=== PATIENT | female | born 1970 | race Caucasian/White ===

== ENCOUNTER → 2017-11-17 11:37 | Outpatient (CLI) | payer SELFPAY ==
--- NOTE | 2017-11-17 11:00 | EMB_PTH ---
PATIENT: USMAN MONTEJO LOC: [facility] U#:[id number] AGE/SX: 54/F ROOM: RE11/17/[address]: Dr. Jacqueline Richardson MD : 1970 BED: DIS: SPEC #: [id number] RECD: 11/17/17 15:09 STATUS: ANTWAN JAMILA #: [id number] MANISHA: 11/17/17 11:[address]: Jacqueline Eaton DEPT: SURGICAL PATHOLOGY RECD BY: Dionisio Nagy Tissues: Endometrium, NOS Procedures: Surgery Specimen Level IV HEADER OPERATION: Endometrial biopsy PRE-OP DIAGNOSIS: N92.0, D25.1; LMP 11/04/17 TISSUE SUBMITTED: Endometrial biopsy MICROSCOPIC DIAGNOSIS Endometrial biopsy: Mildly disordered proliferative endometrium. SJ:gamal 11/21/17 MICROSCOPIC DESCRIPTION Slides are reviewed. GROSS DESCRIPTION Received in fixative is one container labeled with the patient's name and designated EM biopsy. The specimen consists of multiple fragments of hemorrhagic soft tissue mixed with blood clot that in aggregate measure 3 x 2.5 x 0.3 cm. The specimen is totally submitted in one cassette. / SJ:gamal 11/20/17 TC:5 CPT: 08149
[2017-11-17 15:27] LABS: LDH 175 U/L (84-246); Thyroid Stim Hormone (TSH) 1.88 uIU/mL (0.358-3.74)
== END ==
PROVIDERS: Visit Provider Obstetrics & Gynecology
DX: N92.0 Excessive and frequent menstruation with regular cycle (principal); D25.1 Intramural leiomyoma of uterus
CPT/HCPCS: 36415; 83615; 84443; 88305

== ENCOUNTER → 2023-10-02 | Outpatient (CLI) | payer SELFPAY ==
[2023-10-02 17:03] LABS: Absolute Lymphocyte Count 2.24 X10^3/uL (0.83-4.51); Absolute Neutrophil Count 5.1 X10^3/uL (2.0-7.7); Basophil# 0.06 X10^3/uL; Basophil% 0.7 % (0-1); Eosinophil# 0.11 X10^3/uL; Eosinophils% 1.4 % (0-5); Hematocrit 38.5 % (37-47); Hemoglobin 12.3 g/dL (12.0-15.0); Lymphocyte # 2.24 X10^3/ul (0.83-4.51); Lymphocyte % 27.9 % (19-41); Mean Corp Hgb Conc 31.9 g/dL (32-36); Mean Corpuscular Hgb 29.6 pg (27.0-32.0); Mean Corpuscular Volume 92.8 fL (81-99); Mean Platelet Vol. 10.1 fl (6.2-12.0); Monocyte# 0.49 X10^3/uL; Monocyte% 6.1 % (0-10); NRBC Flagged by Analyzer 0 % (0-5); Neutrophil # 5.05 X10^3/uL (2.7-7.7); Platelet Count 255 K/mm3 (150-450); RBC Distribution Width CV 12.4 % (11.6-14.6); RBC Distribution Width SD 42.2 fl (35.1-43.9); Red Blood Count 4.15 M/mm3 (4.2-5.4)
== END | disposition home or self-care (01) ==
PROVIDERS: Referring Provider Obstetrics & Gynecology; Visit Provider Obstetrics & Gynecology
DX: D25.9 Leiomyoma of uterus, unspecified (principal); N80.9 Endometriosis, unspecified
CPT/HCPCS: 36415; 85025

== ENCOUNTER → 2023-10-16 | Outpatient (CLI) | payer SELFPAY ==
--- NOTE | 2023-10-16 13:37 | US_ITS ---
STUDY: ULTRASOUND OF THE FEMALE PELVIS - COMPLETE REASON FOR EXAM: Female, 53 years old. AUB LMP: Patient is postmenopausal. TECHNIQUE: Transabdominal and Transvaginal TECHNICAL QUALITY: Adequate. COMPARISON: None. FINDINGS: The uterus is anteverted and is in a midline position. The uterus measures 11.7 cm x 10.1 cm x 7.1 cm. There is a Nabothian cyst of the cervix. The endometrium is thickened and measures 15 mm in thickness, and is hyperechoic. There is no demonstrated endometrial mass. Multiple uterine fibroids are seen. The largest is a pedunculated fibroid measuring 7.3 cm x 6.1 cm by 4.4 cm. I.U.D. - The patient does not have an I.U.D. The right ovary is visualized. The right ovary measures 2.6 cm x 1.6 cm x 1.4 cm. There is no right ovarian cyst or ovarian mass. There is no visualized right adnexal mass or complex lesion. There is normal arterial and normal venous vascularity. The left ovary is visualized. The left ovary measures 4.2 cm x 2.1 cm x 1.3 cm. There is no left ovarian cyst or ovarian mass. There is no visualized left adnexal mass or complex lesion. There is normal arterial and normal venous vascularity. There is no fluid in the cul-de-sac. The pre void volume of the bladder was 206 ml. US/Pelvic w/ Transvaginal IMPRESSION: Multiple uterine fibroids. Thickened endometrium. Electronically Signed: Terrell Weldon MD at 9:34 EDT ,
== END | disposition home or self-care (01) ==
PROVIDERS: Referring Provider Obstetrics & Gynecology; Visit Provider Obstetrics & Gynecology
DX: D25.9 Leiomyoma of uterus, unspecified (principal); Z78.0 Asymptomatic menopausal state; N80.9 Endometriosis, unspecified; N93.9 Abnormal uterine and vaginal bleeding, unspecified
CPT/HCPCS: 76830; 76856

== ENCOUNTER → 2023-11-08 | Outpatient (CLI) | payer SELFPAY ==
--- NOTE | 2023-11-08 | EMB_PTH ---
PATIENT: USMAN MONTEJO LOC: [facility] U#:[id number] AGE/SX: 53/F ROOM: RE11/08/[address]: Dr. Sera Bowser MD : 1970 BED: DIS: 11/08/2023 SPEC #: [id number] RECD: 11/08/23 17:50 STATUS: ANTWAN JAMILA #: [id number] MANISHA: 11/08/23 00:[address]: Sera Bowser DEPT: SURGICAL PATHOLOGY RECD BY: Dionisio Nagy ENTERED: 11/09/23 07:24 SP TYPE: ENDOM BX/C DALILA DR: No Primary Care Phys Tissues: Endometrium, NOS Procedures: Surgery Specimen Level IV HEADER OPERATION: Endometrial biopsy PRE-OP DIAGNOSIS: Abnormal uterine bleeding TISSUE SUBMITTED: Endometrial lining MICROSCOPIC DIAGNOSIS Endometrial biopsy: Proliferative endometrium. ALLI/ 11/10/2023 MICROSCOPIC DESCRIPTION Slides are reviewed. GROSS DESCRIPTION Received is one container labeled with the patient's name and not further designated. The specimen consists of multiple irregular fragments of hemorrhagic mucoid tissue that in aggregate measure 2.5 x 2.5 x 0.3 cm. The specimen is totally submitted in one cassette. ALLI/ 11/09/2023 TC:4 CPT:90060
[2023-11-12 19:07] LABS: HPV APTIMA, High Risk Negative (Negative)
== END | disposition home or self-care (01) ==
PROVIDERS: Referring Provider Obstetrics & Gynecology; Visit Provider Obstetrics & Gynecology
DX: N93.9 Abnormal uterine and vaginal bleeding, unspecified (principal)
CPT/HCPCS: 87624; 88175; 88305; G0145

== ENCOUNTER 2023-12-26 05:32 | Day surgery (SDC) | payer SELFPAY ==
--- NOTE | 2023-12-18 08:48 | EKG12_ITS ---
Test Reason : PRE OP Blood Pressure : / mmHG Vent. Rate : 066 BPM Atrial Rate : 066 BPM P-R Int : 142 ms QRS Dur : 088 ms QT Int : 388 ms P-R-T Axes : 068 028 -02 degrees QTc Int : 406 ms Normal sinus rhythm Low voltage QRS Nonspecific T wave abnormality Abnormal ECG Confirmed by JAMARI SHAW, JOEL ([id number]), film editor supervisor MARISA RAJAN ([id number]) on 12/22/2023 6:10:44 AM Referred By: Melody Adan Confirmed By:TOM KAUFFMAN MD
[2023-12-18 09:50] LABS: Magnesium 2.1 mg/dL (1.6-2.6)
[2023-12-26] VITALS (18 sets, daily range): BP systolic 99–149; BP diastolic 67–90; PULSE 51–67; RESP 14–20; TEMP 36.4–36.8; O2SAT 94–100; BMI 32.9
[2023-12-26 06:17] LABS: Internal QC Validated? YES +Cl - CLEAR BKGD; Pregnancy, Urine Negative Negative
[2023-12-26] MEDS: Acetaminophen 500 MG Tablet 1000 MG PO ×2 (06:29→15:04)
[2023-12-26] MEDS: Magnesium 1 GM over 15 mins IV (06:29)
[2023-12-26] MEDS: Celecoxib 200 MG Capsule 400 MG PO (06:29)
[2023-12-26] MEDS: dexAMETHasone 4 MG/ML Vial 8 MG IV (06:29)
[2023-12-26] MEDS: Gabapentin 600 MG Tablet PO (06:29)
[2023-12-26] MEDS: Phenazopyridine 95 MG Tablet 190 MG PO (06:29)
[2023-12-26] MEDS: Scopolamine 1mg/72hr Patch 1 PATCH TD (06:30)
[2023-12-26] MEDS: Lactated Ringers 1,000 ML 40 ML IV (06:30)
[2023-12-26] MEDS: Enoxaparin 30 MG/0.3 ML Syringe SC (06:53)
--- NOTE | 2023-12-26 07:00 | PRE.ANES_ITS ---
ASA Classification* ASA Classification ASA Classification: 2 Assessment & Plan Anesthesia* Anesthesia Assessment Anesthesia Assessment: Discussed sedation and/or anesthesia options, risks, benefits, and alternatives with patient/parents/legal guardian/POA. Questions invited. The patient/parents/legal guardian/POA seems to understand and agrees to proceed with anesthesia plan. Reviewed the physical assessment, medical history, allergy history and patient home medications list prior to surgery/procedure/anesthetic and documented any changes. Performed airway and anesthesia risk assessments. Anesthesia Type Anesthesia Type: General Anesthesia Focused Assessment* Temperature: 97.6 F Pulse Rate: 67 Blood Pressure: 132/90 Respiratory Rate: 17 Pulse Ox: 100 Airway Assessment Mouth opens: >3 cm Mallampati Score: II Focused Labs Anesthesia Preop lab: CBC WBC 8.0 K/mm3 (4.4-11.0) 10/02/23 16:47 RBC 4.15 M/mm3 (4.2-5.4) L 10/02/23 16:47 Hgb 12.3 g/dL (12.0-15.0) 10/02/23 16:47 Hct 38.5 % (37-47) 10/02/23 16:47 Plt Count 255 K/mm3 (150-450) 10/02/23 16:47 CHEMISTRY Potassium Pending 12/26/23 06:20 Sodium Pending 12/26/23 06:20 Magnesium 2.1 mg/dL (1.6-2.6) 12/18/23 08:50 BUN Pending 12/26/23 06:20 Creatinine Pending 12/26/23 06:20 Glucose Pending 12/26/23 06:20 TSH 1.88 uIU/mL (0.358-3.74) 11/17/17 11:41 COAG Urine Test Negative Negative 12/26/23 06:05 Pre-Assessment Diagnosis/Proposed Procedure Planned Operative Procedure(s): Lap Robotic Hysterectomy Cory Salping Anesthesia History Anesthesia History - customer assistance representative: Anesthesia History - customer assistance representative Hx Hospitalization No 12/13/23 09:08 Any Problems With Anesthesia No 12/13/23 09:08 Cholinesterase deficiency No 12/13/23 09:08 You/Your Family Experience No 12/13/23 09:08 fever (hyperthermia) with Relationship Recent Exposure to Contagious No 12/26/23 06:36 Disease Does patient have nerve No 12/13/23 09:08 stimulator Patient instructed to have device shut off --Does patient have Pacemaker No 12/26/23 06:36 or ICD? When Was Last Pacemaker Check QUESTION #4 FULL TEXT: You/Your Family Experience fever (hyperthermia) with Anesthesia Last Oral Intake Last Oral intake: Last Oral Intake NPO since 06:40 12/26/23 06:36 Meds taken in AM with sips of No 12/26/23 06:36 water? Meds patient instructed to take am of surgery PONV PONV - customer assistance representative: PONV - customer assistance representative Female Yes 12/13/23 09:08 HX of Motion Sickness Yes 12/13/23 09:08 HX of N/V After Surgery Yes 12/13/23 09:08 Non-Smoker Yes 12/13/23 09:08 Duration of Surgery greater Yes 12/13/23 09:08 than 60 minutes Number of Risk Factors 5 12/13/23 09:08 PONV Score Severe Risk 12/13/23 09:08 Height & Weight Height & Weight: Anesthesia: Height & Weight Height 5 ft 4 in 12/26/23 06:36 Weight: 87 kg 12/26/23 06:36 Body Mass Index (BMI) 32.9 12/26/23 06:36 Respiratory Assessment Respiratory Assessment - customer assistance representative: Respiratory Tract Infection Hx - customer assistance representative Hx Respiratory Tract Infection No 12/13/23 09:08 STOP Sleep Apnea STOP Sleep Apnea - customer assistance representative: STOP Sleep Apnea - customer assistance representative Hx Hypertension No 12/13/23 09:08 Hx Sleep Apnea No 12/13/23 09:08 CPAP BIPAP Do you snore loudly (louder No 12/13/23 09:08 than talking or can be heard Do you often feel tired/ No 12/13/23 09:08 fatigued/ sleepy during daytime? Has anyone observed you stop No 12/13/23 09:08 breathing during sleep? STOP Results Negative 12/13/23 09:08 QUESTION #5 FULL TEXT : Do you snore loudly (louder than talking or can be heard through closed doors)? Tobacco Use History Tobacco Use History - customer assistance representative: Tobacco Use History - customer assistance representative Tobacco Use Smoking Status Never smoker 12/13/23 09:08 Hx Tobacco Use No 12/13/23 09:08 Years Smoking Packs Smoked per Day Smoking Cessation Date was within the last 15 years Hx Smoking Cessation Date Hx Smoking Cessation Counseling Hematologic Medial History Hematologic Hx - customer assistance representative: Hematologic Medical Hx - executive candidate developer Hx of Blood Transfusion No 12/13/23 09:08 Hx of Transfusion in last 3 No 12/13/23 09:08 Months Date of Last Transfusion (if within last 3 months) Ever experience any problems No 12/13/23 09:08 with transfusion(s)? Specify any problems Hx of Preganancy in last 3 N/A 12/13/23 09:08 Months Nurse Filling Out Transfusion NBUCHER 12/13/23 09:08 & Questions: Date: 12/13/23 12/13/23 09:08 Time: 09:10 12/13/23 09:08 Patient unable to answer at this time (ie. confused, unrespo /Reproduction History /Reproductive History - customer assistance representative: /Reproductive Hx- customer assistance representative Hx Now No 12/13/23 09:08 Gestational Age (in weeks): EDC: Hx Hx Para Hx Section SAB No 12/20/23 13:05 Active Medications Active Medications: Current Medications Generic Name Dose Route Start Last Admin Trade Name Freq PRN Reason Stop Dose Admin Acetaminophen 1,000 mg 12/26/23 11:05 12/26/23 06:29 Acetaminophen 500 Mg Tablet PO 12/26/23 11:06 1,000 mg PREOP ONE Administration Celecoxib 400 mg 12/26/23 11:05 12/26/23 06:29 Celecoxib 200 Mg Capsule PO 12/26/23 11:06 400 mg X1 ONE Administration Dexamethasone Sodium Phosphate 8 mg 12/26/23 11:05 12/26/23 06:29 Dexamethasone 4 Mg/Ml Vial IV 12/26/23 11:06 8 mg X1 ONE Administration Gabapentin 600 mg 12/26/23 11:05 12/26/23 06:29 Gabapentin 600 Mg Tablet PO 12/26/23 11:06 600 mg PREOP ONE Administration Lactated Ringer's 1,000 mls @ 40 mls/hr 12/26/23 11:05 12/26/23 06:30 IV 40 mls/hr .Q25H NATIVIDAD Administration Cefazolin Sodium 2 gm/ Sodium 110 mls @ 150 mls/hr 12/26/23 11:05 Chloride IV 12/26/23 11:48 PREOP ONE Lactated Ringer's 1,000 mls @ 70 mls/hr 12/26/23 11:05 IV .[id number] NATIVIDAD Magnesium Sulfate 1 gm/ 102 mls @ 408 mls/hr 12/26/23 11:05 12/26/23 06:29 Dextrose IV 12/26/23 11:19 408 mls/hr X1 ONE Administration Insulin Human Lispro 0 unit 12/26/23 11:05 Insulin Lispro 100 Unit/Ml Insuln.Pen SC Q4H PRN PRN BG >/= 180, SEE PROTOCOL Protocol Ondansetron HCl 4 mg 12/26/23 11:05 Ondansetron 4 Mg/2 Ml Vial IV 12/26/23 11:06 X1 ONE Phenazopyridine HCl 190 mg 12/26/23 11:05 12/26/23 06:29 Phenazopyridine 95 Mg Tablet PO 12/26/23 11:06 190 mg X1 ONE Administration Scopolamine HBr 1 patch 12/26/23 11:05 12/26/23 06:30 Scopolamine 1mg/72hr Patch TD 12/26/23 11:06 1 patch X1 ONE Administration PFSH Medical History Preop testing PONV (postoperative nausea and vomiting) Wears glasses Restless legs Migraine headache Non-smoker History of edema Uterine fibroid Endometriosis Home Medications ?Medication ?Instructions ?Recorded ?Last Taken ?Type vitamin B complex (Complex B-100 1 tab PO DAILY 12/13/23 12/25/23 History tablet,extended release) Allergy/AdvReac Type Severity Reaction Status Date / Time No Known Allergies Allergy Verified 12/26/23 06:28 Family History Father Colon cancer Grandmother Uterine cancer, Onset Age: 78 Other Heart disease Surgical History History of wisdom tooth extraction H/O laparoscopy Social History adopted: No number of children: 1 current occupational status: employed current occupation: House cleaning Smoking Status: Never smoker alcohol intake: never substance use type: does not use additional social history: Spouse - Maria T (drafting in a [employer] shop) Review of Systems (Anesthesia) ROS Narrative System reviewed and no additional complaints, except as documented.
[2023-12-26 07:12] LABS: Bedside Glucose 81 mg/dL (74-106)
--- NOTE | 2023-12-26 07:16 | HP.PCM_ITS ---
History and Physical Date of Admission: 12/26/23 Intake Vital Signs 11/08/2415:11 12/19/2412:03 12/19/2412:05 Height 5 ft 4 in 5 ft 4 in 5 ft 4 in Weight: 194 lb BMI 33.3 BP 114/76 Intake Visit Reasons: robotic total hyst BS Marriage Counselor Required: No Is patient in pain?: No Allergies No Known Allergies Allergy (Verified 12/20/23 13:03) Medications ?Medication ?Instructions ?Recorded ?Confirmed ?Type vitamin B complex (Complex B-100 1 tab PO DAILY 12/13/23 12/20/23 History tablet,extended release) Post menopausal: No Patient : No : No PFSH Medical History Preop testing PONV (postoperative nausea and vomiting) Wears glasses Restless legs Migraine headache Non-smoker History of edema Uterine fibroid Endometriosis Surgical History History of wisdom tooth extraction H/O laparoscopy Family History Father Colon cancerGrandmother Uterine cancer, Onset Age: 78Other Heart disease Social History adopted: No number of children: 1 current occupational status: employed current occupation: House cleaning Smoking Status: Never smoker alcohol intake: never substance use type: does not use additional social history: Spouse - Maria T (drafting in a [employer] shop) HPI robotic total hyst BS Details: USMAN MONTEJO is a 53 year old (vaginal) who presents for preop hysterectomy. She is scheduled for a robotic hysterectomy. She has a history of heavy periods and now has low back pain and sever pressure and pain in her abdominal area. pain radiates to her knees at time. EMB was benign. Ultrasound shows the following: The uterus is anteverted and is in a midline position. The uterus measures 11.7 cm x 10.1 cm x 7.1 cm. There is a Nabothian cyst of the cervix. The endometrium is thickened and measures 15 mm in thickness, and is hyperechoic. There is no demonstrated endometrial mass. Multiple uterine fibroids are seen. The largest is a pedunculated fibroid measuring 7.3 cm x 6.1 cm by 4.4 cm. I.U.D. - The patient does not have an I.U.D. The right ovary is visualized. The right ovary measures 2.6 cm x 1.6 cm x 1.4 cm. There is no right ovarian cyst or ovarian mass. There is no visualized right adnexal mass or complex lesion. There is normal arterial and normal venous vascularity. The left ovary is visualized. The left ovary measures 4.2 cm x 2.1 cm x 1.3 cm. There is no left ovarian cyst or ovarian mass. There is no visualized left adnexal mass or complex lesion. There is normal arterial and normal venous vascularity. There is no fluid in the cul-de-sac. The pre void volume of the bladder was 206 ml. US/Pelvic w/ Transvaginal IMPRESSION: Multiple uterine fibroids. Thickened endometrium. endometrial pathology showed proliferative endometrium on EMB. History 1 Elective abortions Hx Para 1 Spontaneous abortions Hx # Term Pregnancies Ectopic pregnancies Hx # Pregnancies Multiple births # of living children 1 Past Pregnancies Del. Date Name GA/Weeks Outcome Route Bth Weight Infant Gen Labor Lgth Anesthesia Del Locatn Provider FOB Unknown Evette 1994 ROS Const ROS Unobtainable: All systems reviewed & are unremarkable except as noted in H Resp Resp: Reports system reviewed and no additional complaints, except as documented; Denies cough GI GI: Reports as per HPI Psych Psych: Reports system reviewed and no additional complaints, except as documented Exam Const General: cooperative, healthy appearing, comfortable and no acute distress Resp Effort & Inspection: normal respiratory effort Skin General: no rashes or lesions noted Psych Appearance: grossly normal Speech and Movement: speech and movement normal Coding Level of Care Code Off vis,est,level 4 Diagnoses Uterine fibroid D25.9 Endometriosis N80.9 Assessment and Plan Assessment and Plan (1) Uterine fibroid: Status: Acute Comment: discussed options, workup ordered. needs cbc US EMB and discussed Myfembree vs Hysterectomy. 7 cm fibroid, pap and EMB done, recommend robotic TLHBS. (2) Endometriosis: Status: Acute Plan: After discussing the patient's diagnosis and treatment plan options, patient wishes to proceed with surgical management. I have discussed with the patient the risks, benefits, and alternatives of the procedure which include but are not limited to risks of anesthesia, bleeding, infection, possible damage to bowel, bladder, or surrounding vasculature which could lead to additional surgery to evaluate any complications. Patient agrees to procedure and wishes to proceed. ACOG/uptodate references given for additional information regarding procedure. plan is for total robotic hysterectomy, bilateral salpingectomy, cystoscopy.
--- NOTE | 2023-12-26 07:22 | DCINST_ITS ---
Discharge Instructions Diet Discharge Diet: No restrictions Activity Discharge Activity: May Shower and - (may walk and use stairs sparingly. Nothing in the vagina, and no intercourse x 8 weeks. ) May resume sexual activity in: 6 weeks Weight Bearing Status: Full weight bearing Lifting Restrictions: 10 pounds Dressing / Incision Call your doctor if your incision/area has: Continuous Slow Oozing, Sudden Increased Bleeding, Increased Pain/ Swelling, Increased Redness and Foul Smelling Discharge Call your doctor if you observe: Fever of 101 or Higher, Using more than 1 pad per hour, Shortness of breath, Chest pain and Uncontrolled pain Suture Line Care: Avoid Pulling/Pushing and Avoid Pinching/Bending Remove Dressing in: 1 week (if present) Cleanse incision/area with: Soap & Water and Keep Dressing Clean & Dry Follow Up Care Please Follow Up With: Melody Adan DO When: Call to make an appointment with your doctor for a postop visit in 2 and 6 weeks Test Results: Test results from this visit will be discussed in further detail at your follow- up appointment, if applicable. Discharge Plan Admission Primary Reason for Your Visit: hysterectomy Attending Provider: Melody Adan Primary Care Provider: Dorys PhysicianIris Primary Instructions Print Language: [place] Discharge Orders/Prescriptions Prescriptions: New ibuprofen 800 mg tablet 800 mg PO Q8H PRN (Reason: pain) Qty: 30 0RF oxycodone-acetaminophen [Percocet] 5-325 mg tablet 1 tab PO Q4H PRN (Reason: pain) 7 Days Qty: 20 0RF Rx Instructions: 1-2 tabs q 4 hrs as needed for pain No Action Complex B-100 Tablet Extended Release 1 tab PO DAILY Other Ambulatory Orders: 12 Lead EKG (Routine) Timeframe: 20231218 Location: None Selected Ordered By: Dr. Delfino Mayorga Referrals / Follow Up: Care Physician,No Primary [Primary Care Provider] - Disposition Disposition (needs filled in before D/C Order can be placed): Home, Self Care
--- NOTE | 2023-12-26 07:30 | HYST_PTH ---
PATIENT: USMAN MONTEJO [place] [facility] [place][id number] AGE/SX: 53/F ROOM: RE12/26/[address]: Dr. Melody Adan DO : 1970 BED: DIS: 12/26/2023 SPEC #: [id number] RECD: 12/26/23 11:14 STATUS: ANTWAN JAMILA #: [id number] MANISHA: 12/26/23 07:[address]: Melody Adan DEPT: SURGICAL PATHOLOGY RECD BY: Ines Woods ENTERED: 12/26/23 12:51 SP TYPE: HYSTERECT OTHR DR: No Primary Care Phys Tissues: Uterus, NOS Procedures: Surgery Specimen Level V HEADER OPERATION: Laparoscopic robotic hysterectomy, bilateral salpingectomy PRE-OP DIAGNOSIS: Uterine fibroid, endometriosis TISSUE SUBMITTED: Uterus and bilateral fallopian tubes MICROSCOPIC DIAGNOSIS Uterus, bilateral fallopian tubes, hysterectomy, bilateral salpingectomy: Cervix - Chronic inflammation Endometrium - Proliferative endometrium Myometrium - Intramural, submucosal and subserosal leiomyomas (largest measuring 7.0cm in greatest dimension). -Focal adenomyosis. Bilateral fallopian tubes- No pathologic diagnosis. 12/27/2023 COMMENT Please make reference to previous specimen [id number] endometrial biopsy with diagnosis of proliferative endometrium. MICROSCOPIC DESCRIPTION Slides are reviewed. GROSS DESCRIPTION Received in fixative is one container labeled with the patient's name and designated uterus, cervix, bilateral fallopian tubes. The specimen consists of a hysterectomy specimen consisting of uterus with cervix and attached right fallopian tube and detached left fallopian tube. The uterus with cervix weighs 347 gm and measures 11.0 x 11.0 x 11.0 cm. The serosal surface is huynh glistening. A few subserosal nodules are noted. The ectocervical mucosa is unremarkable. The external os is oval in contour. The endocervical canal measures 3.5 cm in length and the endocervical mucosa is huynh glistening and unremarkable. The endometrial cavity is narrow and compressed due to submucosal nodular masses and measures 5.5 cm in length and 2.0 cm in width. The endometrium is huynh glistening without any mass lesions and measures 0.1 cm in thickness. Section of the uterine wall reveal multiple intramural submucosal and subserosal nodular masses. Largest mass is subserosal to intramural location and measures 7.0cm in greatest dimension. Sections of these masses reveal huynh whorled cut surfaces without areas of hemorrhage, necrosis or cystic degeneration. Uninvolved uterine wall measures up to 3.5cm in thickness. Right fallopian tube measures 7.5cm in length and 0.7cm in diameter. Fimbrial end is identified. Sections reveal unremarkable cut surfaces. Left fallopian tube is similar in appearance to right and measures 5.5cm in length and up to 1.0cm in diameter. Radio Commentator sections are submitted in twelve cassettes as follows: 1 - anterior cervix, 2 - posterior cervix, 3 & 4 - anterior uterine wall, 5 & 6 - posterior uterine wall, 7- largest nodular mass, 8- second largest nodular mass, 9- third largest nodular mass, 10- smaller nodular masses, 11- right fallopian tube, 12- left fallopian tube. SJ: 12/26/2023 TC:1 CPT: 60105
--- NOTE | 2023-12-26 09:15 | OP.PCM_ITS ---
Problems Associated Problem List Diagnoses (1) Uterine fibroid: (2) Endometriosis: Report of Operation Date of Procedure: 12/26/23 Pre-Operative Diagnosis: large fibroid uterus, history of endometriosis, pelvic pain and menorrhagia Post-Operative Diagnosis: large fibroid uterus, history of endometriosis, pelvic pain and menorrhagia Surgery/Procedure Performed:: total robotic hysterectomy, bilateral salpingectomy, cystoscopy Description of Surgical Findings:: Findings: 11 cm size posterior fibroid uterus, normal appearing right ovary and tube. Left ovary contained a 2 cm endometrioma and a normal fallopian tube On exploration of the abdominal cavity the uterus, adnexa, bowel, and liver were found to be normal. Cystoscopy showed no evidence of leaking at approximately 250 cc of normal saline, positive ureteral orifices and jet flow are seen and no suture material was appreciated in the bladder. Specimens removed: Uterus and cervix, Bilateral tubes Reason for surgery: This is a 52-year-old G1, P1 who presented to my office with history of pelvic and back pain, heavy periods, and ultrasound finding or a left ovarian endometrima and large 11cm fibroid uterus. the planned procedure is for a robotic hysterectomy the risks benefits and alternatives were discussed with the patient the patient had a clear understanding of the procedure and a consent form was signed. Surgeon: Melody Adan outdoor adventure guides: Paulette Arreola outdoor adventure guides: aRmos Nunez Type of Anesthesia: General Specimen's removed: uterus, fallopian tubes Drains: none Estimated Blood Loss (mL): 50cc Description of Procedure: Procedure: The patient was placed in the dorsal low lithotomy position and prepped and draped in the normal sterile fashion both abdominally and in the perineum. Her legs were placed in stirrups a Og catheter was inserted into the urethra without difficulty. A weighted speculum was placed in the vagina and a single- tooth tenaculum was used to grasp the anterior lip of the cervix. An advincula uterine manipulator was inserted through the cervix without complication. It was then tied into place at the 2 and 10:00 locations on the cervix. Gloves were changed and attention was turned towards the abdomen. Approximately 23 cm above the pubic symphysis in the midline, and after Marcaine injection, a 8 mm incision was made. An 8 mm trocar was inserted through the laparoscope, then inserted into the abdomen under direct visualization using the laparoscope. Good abdominal placement was noted and no complications were appreciated. An air seal device was utilized to create pneumoperitoneum. At 12 cm lateral to the midline on the left and right sides 8 mm accessory ports were placed. Next a left upper quadrant 8 mm assistant analyst port site was placed. The patient was placed in steep Trendelenburg position. The robot was docked. The hysterectomy was initiated first by taking down the round ligament on each side using the vessel sealer device. The mesosalpinx between the fallopian tube and IP ligament was and cut. These areas were freed without complication the broad ligament was then and taken down using the vessel sealer device. Next the bladder flap was taken down without complication. This was done using monopolar cautery to the level of the cervical vaginal junction. After the bladder flap was created, uterine vessels were then isolated and cauterized using the vessel sealer device and EndoShears. At this point the uterine vessels were taken down further starting from the ascending branch, dissecting along the edges of the cervix to the level of the cervical vaginal junction with hemostasis appreciated. The cervical vaginal junction was then using monopolar cautery in a circumferential pattern across the superior aspect of the cervix. The specimen was delivered through the vagina with minimal morselation and sent to pathology. The remaining vaginal cuff was then closed using a V lock suture. This was performed in a running technique. Excellent hemostasis was obtained and good closure was noted. Irrigation was then performed. All operative sites were noted to be hemostatic. The left ovarian endometrioma was incised and drained then cauterized using the bovie. A cystoscopy was performed with a 70 degree cystoscope through the urethra into the bladder without complication. The bladder was instilled with approximately 250 cc of normal saline. Intraoperative images were made. Ureteral orifices and jets were identified. No suture material was appreciated in the bladder. The bladder was then drained and cystoscope was removed. A small vaginal wall tear was repaired with a 0 vicryl suture. The abdominal cavity was again examined using the laparoscope after the robot was undocked. All operative sites were noted to be hemostatic. The trochars were removed under direct visualization without complication and pneumoperitoneum was reduced. At this point the skin was then closed using 4-0 Monocryl subcuticular stitch and sealed with surgical glue. The patient tolerated the procedure well sponge lap and needle counts were correct x2 the patient was taken to the recovery room in stable condition. Grafts/Implants Used: none Admit VTE Documentation VTE Present on Admission: Yes VTE Pharm Prophylaxis ordered?: No Multi Select Codes Urinary/Genital Urinary/Genital CPT Codes: 38904 Cystoscopy and 88553 TLH+BS/O >250gr uterus
[2023-12-26] MEDS: Bupivacaine 0.25% 30 ML Vial (09:23)
--- NOTE | 2023-12-26 09:39 | PCM.POST.ANE ---
Anesthesia: Postop Eval I Current Vital Signs Temperature: 98 F Pulse Rate: 66 Blood Pressure: 108/72 Respiratory Rate: 20 Pulse Ox: 98 Oxygen Delivery Method: Room Air Assessment Airway patent: Yes Spontaneous unlabored respirations: Yes Mental status: Awake nausea: No Vomiting: No Anesthesia Complication: No Fluid Hydration Crystalloid volume administer (ml): 1,300 Total IV fluid infused: 1,300 Progress Note Anesthesia document: Postop Eval 1 completed: Yes
[2023-12-26] MEDS: Ondansetron 4 MG/2 ML Vial IV (09:41)
[2023-12-26 09:47] LABS: Anion Gap 5 (5-15); BUN 12 mg/dL (7-18); BUN/Creat Ratio 17.3 RATIO (10-20); Calcium,Total 9.8 mg/dL (8.5-10.1); Chloride 105 mmol/L (98-107); Creatinine, Serum 0.69 mg/dL (0.55-1.02); EST Glomerular Filtration Rate 95 mL/min (>60); Est Glom Filt Rate - Afr Amer 115 mL/min (>60); Estimated Creatinine Clearance 102.97 ml/min; Glucose 86 mg/dL (74-106); Potassium 3.5 mmol/L (3.5-5.1); Sodium Level 141 mmol/L (136-145)
--- NOTE | 2023-12-26 09:54 | POSTOPAN2_ITS ---
Anesthesia Postop Eval I Sum Postop Eval Completion status Anesthesia document: Postop Eval 1 completed: Yes Anesthesia Postop Eval I Summary Anesthesia Postop Eval I Summary: Anesthesia Postop Eval I: Assessment Summary Airway patent Yes 12/26/23 09:40 EYEGLASS LENS [email or web address] Spontaneous unlabored Yes 12/26/23 09:40 EYEGLASS LENS [email or web address] respirations Mental status Awake 12/26/23 09:40 EYEGLASS LENS GRINDER.JDEF nausea No 12/26/23 09:40 EYEGLASS LENS GRINDER.JDEF Vomiting No 12/26/23 09:40 EYEGLASS LENS [email or web address].JDEF Anesthesia Postop Eval I: Fluid Summary Crystalloid volume administer 1,300 12/26/23 09:40 EYEGLASS LENS GRINDER.JDEF (ml) Colloids volume administered ( ml) Blood Product volume administered (ml) Total IV fluid infused 1,300 12/26/23 09:40 EYEGLASS LENS GRINDER.JDEF Anesthesia Postop Eval I: Summary Notes Anesthesia Complication No 12/26/23 09:40 EYEGLASS LENS [email or web address].JDEF Anesthesia Complication Comment: Post-operative progress note Anesthesia: Postop Eval II Evaluation Mental status: Awake Pain Level: 0 nausea: No Vomiting: No
--- NOTE | 2023-12-26 09:54 | PCM.POSTANE2 ---
Anesthesia Postop Eval I Sum Postop Eval Completion status Anesthesia document: Postop Eval 1 completed: Yes Anesthesia Postop Eval I Summary Anesthesia Postop Eval I Summary: Anesthesia Postop Eval I: Assessment Summary Airway patent Yes 12/26/23 09:40 INSPECTOR PROCESS.JDEF Spontaneous unlabored Yes 12/26/23 09:40 INSPECTOR PROCESS.JDEF respirations Mental status Awake 12/26/23 09:40 INSPECTOR PROCESS.JDEF nausea No 12/26/23 09:40 INSPECTOR PROCESS.JDEF Vomiting No 12/26/23 09:40 INSPECTOR PROCESS.JDEF Anesthesia Postop Eval I: Fluid Summary Crystalloid volume administer 1,300 12/26/23 09:40 INSPECTOR PROCESS.JDEF (ml) Colloids volume administered ( ml) Blood Product volume administered (ml) Total IV fluid infused 1,300 12/26/23 09:40 INSPECTOR PROCESS.JDEF Anesthesia Postop Eval I: Summary Notes Anesthesia Complication No 12/26/23 09:40 INSPECTOR PROCESS.JDEF Anesthesia Complication Comment: Post-operative progress note Anesthesia: Postop Eval II Evaluation Mental status: Awake Pain Level: 0 nausea: No Vomiting: No
[2023-12-26] MEDS: Lactated Ringers @ 70 MLS/HR 70 ML IV (12:25)
[2023-12-26] MEDS: HYDROcodone Bitartrate/Apap 5/325 Tablet PO (12:43)
--- NOTE | 2023-12-26 13:32 | SUR.PHASEII ---
scop patch off at 1325, patient complaint of dizziness, drowsiness.
[2023-12-26] MEDS: Ibuprofen 400 MG Tablet 800 MG PO (15:41)
[2023-12-26] MEDS: Furosemide 20 MG/2 ML VIAL IV (17:09)
== END 2023-12-26 18:00 | disposition home or self-care (01) ==
LOC: SDC 05:35 → AC 05:57
PROVIDERS: Referring Provider Obstetrics & Gynecology; Visit Provider Obstetrics & Gynecology
PROC: 0UT90ZZ Resection of Uterus, Open Approach (ICD-10-PCS; CPT 58573; principal; 2023-12-26 07:10)
DX: D25.9 Leiomyoma of uterus, unspecified (principal); N88.8 Other specified noninflammatory disorders of cervix uteri; N80.9 Endometriosis, unspecified; R10.2 Pelvic and perineal pain; N72 Inflammatory disease of cervix uteri
CPT/HCPCS: 58573; 52000; 00840; 80048; 81025; 82962; 83735; 86850; 86900; 86901; 88307; 93005; J7120; J1940; J2405; J3475

== ENCOUNTER 2025-03-22 10:55 | Emergency (ER) | payer SELFPAY ==
[2025-03-22 10:55] VITALS: BP 171/101; PULSE 69; RESP 14; TEMP 36.1; O2SAT 98; BMI 33.2
--- OUTSIDE RECORDS SUMMARY | 2025-03-22 11:50 | XMS RPT_ITS | CCD ---
Author Organization [facility] Care Team Providers Care Regional Retail Sales Manager Name Role Phone LAUREN ANGLIN Unavailable Unavailable LAUREN ANGLIN Unavailable Unavailable LAUREN ANGLIN Unavailable Unavailable Care Physician, No Primary Primary Care Unava ilable Sera Bowser Attending Unavailable Sera Bowser Referring Unavailable Care Physician, No Primary Primary Care Unava ilable Sera Bowser Attending Unavailable Sera Bowser Referring Unavailable Care Physician, No Primary Primary Care Unava ilable Care Physician, No Primary Referring Unava ilable Vande Velde, Melody Attending Unavailabl e Care Physician, No Primary Primary Care Unava ilable Vande Velde, Melody Referring Unavailabl e NagajothiGabbie Attending Unavailabl e Care Physician, No Primary Primary Care Unava ilable Vande Velde, Melody Consulting Unavailabl e Vande Velde, Melody Referring Unavailabl e Vande Velde, Melody Attending Unavailabl e Care Physician, No Primary Primary Care Unava ilable Care Physician, No Primary Referring Unava ilable Vande Velde, Melody Attending Unavailabl e Care Physician, No Primary Primary Care Unava ilable Care Physician, No Primary Referring Unava ilable Vande Velde, Melody Attending Unavailabl e Care Physician, No Primary Primary Care Unava ilable Vande Velde, Melody Referring Unavailabl e Vande Velde, Melody Attending Unavailabl e Sera Bowser Attending Unavailable Care Physician, No Primary Referring Unava ilable Care Physician, No Primary Primary Care Unava ilable Sera Bowser Attending Unavailable Care Physician, No Primary Primary Care Unava ilable Sera Bowser Attending Unavailable Sera Bowser Referring Unavailable Problems Problem Classification Problem Date Documented Da te Episodic/Chronic Benign neoplasm of uterus (1 source) Leiomyoma of uterus, unspecified; Translations: [Leiomyoma of uterus, unspecified] Onset: 02-05-2024 Episodic Endometriosis (1 source) Endometriosis, unspecified; Translations: [Endometriosis, unspecified] Onset: 02-05-2024 Chronic Other female genital disorders (1 source) Abnormal uterine and vaginal bleeding, unspecified; Translations: [Abnormal uterine and vaginal bleeding, unspecified] Onset: 11-17-2023 Chronic Results Test Name Value Interpretation Reference Range Facility President And Cmo Office Visit Reporton 02-05-2024 President And Cmo Office Visit Report [facility] [address], [address] [place] [address] OFFICE VISIT Date of Service: 02/05/24 MR#: [id number] Acct: [id number] Name: PARVIN MONTEJO Rep #: [id number] : 1970 Provider: Dr. Melody Geiger DO Age/Sex: 53/F [place] [facility] [place]: Signed Intake Vital Signs 11/08/23 16:11 01/08/24 10:07 02/05/24 09:58 02/05/24 10:00 Height 5 ft 4 in 5 ft 4 in 5 ft 4 in 5 ft 4 in Weight: 190 lb 2 oz BMI 32.6 BP 129/79 H Intake Visit Reasons: 6 wk RTHBS 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 Is patient in pain?: No Allergies No Known Allergies Allergy (Verified 02/05/24 09:58) Medications ???Medication ???Instructions ???Recorded ???Confirmed ???Type vitamin B complex (Complex B-100 1 tab PO DAILY 12/13/23 02/05/24 History tablet,extended release) Post menopausal: No Patient : No : No PFSH Medical History Preop testing PONV (postoperative nausea and vomiting) Wears glasses Restless legs Migraine headache Non-smoker History of edema Uterine fibroid Endometriosis Surgical History (Updated 02/05/24 @ 10:04 by Evette Keyes) S/P total hysterectomy ( 12/26/23) History of wisdom tooth extraction H/O laparoscopy Family History Father Colon cancer Grandmother Uterine cancer, Onset Age: 78 Other Heart disease Social History adopted: No number of children: 1 current occupational status: employed current occupation: House cleaning Smoking Status: Never smoker alcohol intake: never substance use type: does not use additional social history: Spouse - Maria T (drafting in a [employer] shop) HPI 6 wk RTHBS Details: PARVIN MONTEJO is a 53 year old who presents for 6 week post op hyst. Still has some fatigue but overall feels well. Needs screening colonoscopy due to family history and persistent right lower side pains. (even before hyst) History 1 Elective abortions Hx Para 1 Spontaneous abortions Hx # Term Pregnancies Ectopic pregnancies Hx # Pregnancies Multiple births # of living children 1 Past Pregnancies Del. Date Name GA/Weeks Outcome Route Bth Weight Infant Gen Labor Lgth Anesthesia Del Locatn Provider FOB Unknown 1994 [facility] ENT ENT: Reports system reviewed and no additional complaints, except as documented Cardio Card: Reports system reviewed and no additional complaints, except as documented Resp Resp: Denies cough, dyspnea or dyspnea on exertion GI GI: Denies abdominal pain, bloating or change in bowel habits : Denies vaginal odor or vaginal pruritus Details: lochia is mild Musc Musc: Reports system reviewed and no additional complaints, except as documented Exam Const General: cooperative, healthy appearing and comfortable Resp Effort Inspection: normal respiratory effort GI Palpation: soft and nontender Rectal Exam: other Other: cuff is intact and suture is dissolving. no bleeding or signs of infection Extrem General: no edema Coding Level of Care Code No Charge Diagnoses Uterine fibroid D25.9 Endometriosis N80.9 Assessment and Plan Assessment and Plan (1) Uterine fibroid: Status: Acute Comment: discussed options, workup ordered. needs cbc US EMB and discussed Myfembree vs Hysterectomy. 7 cm fibroid, pap and EMB done, recommend robotic TLHBS. (2) Endometriosis: Status: Acute Plan: status post hyst. no complaints. referral for colonoscopy placed. 02/05/24 1027 Date Melody Rodriguez Signature: Date (if applicable) CC: Normal [facility] President And Cmo Office Visit Reporton 01-08-2024 President And Cmo Office Visit Report [facility] [place] [address], [address] [place] [address] OFFICE VISIT Date of Service: 01/08/24 MR#: [id number] Acct: [id number] Name: PARVIN MONTEJO Rep #: [id number] : 1970 Provider: Dr. Melody Geiger DO Age/Sex: 53/F [place] [facility] [place]: Signed Intake Vital Signs 11/08/23 16:11 12/26/23 06:36 01/08/24 10:03 01/08/24 10:07 Height 5 ft 4 in 5 ft 4 in 5 ft 4 in 5 ft 4 in Weight: 190 lb BMI 32.5 BP 127/79 H Intake Visit Reasons: 2 wk RTHBS Chief Complaint: 2w incision check 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 Is patient in pain?: No Allergies No Known Allergies Allergy (Verified 01/08/24 10:03) Medications ???Medication ???Instructions ???Recorded ???Confirmed ???Type vitamin B complex (Complex B-100 1 tab PO DAILY 12/13/23 12/26/23 History tablet,extended release) ibuprofen 800 mg tablet 800 mg PO Q8H PRN pain #30 tabs 12/26/23 Rx Is last menstrual period known: No Post menopausal: No Patient : No : No PFSH Medical History Preop testing PONV (postoperative nausea and vomiting) Wears glasses Restless legs Migraine headache Non-smoker History of edema Uterine fibroid Endometriosis Surgical History (Updated 01/08/24 @ 10:07 by Marlene Jean) Status post hysterectomy History of wisdom tooth extraction H/O laparoscopy Family History Father Colon cancer Grandmother Uterine cancer, Onset Age: 78 Other Heart disease Social History adopted: No number of children: 1 current occupational status: employed current occupation: House cleaning Smoking Status: Never smoker alcohol intake: never substance use type: does not use additional social history: Spouse - Maria T (drafting in a [employer] shop) HPI 2 wk RTHBS Details: PARVIN MONTEJO is a 53 year old who presents for a 2 week post op robotic hysterectomy. She has some right upper side pains but states that they were present prior to surgery. Prior to surgery she had leg, low back and foot pain and she states these are better now. Pathology was benign. The fibroid + uterus was just under 400grams. SHe denies any vaginal leaking or bleeding. History 1 Elective abortions Hx Para 1 Spontaneous abortions Hx # Term Pregnancies Ectopic pregnancies Hx # Pregnancies Multiple births # of living children 1 Past Pregnancies Del. Date Name GA/Weeks Outcome Route Bth Weight Gen Labor Lgth Anesthesia Del Locatn Provider FOB Unknown Evette 1992 [facility] ENT ENT: Reports system reviewed and no additional complaints, except as documented Cardio Card: Reports system reviewed and no additional complaints, except as documented Resp Resp: Denies cough, dyspnea or dyspnea on exertion GI GI: Denies abdominal pain, bloating or change in bowel habits : Denies vaginal odor or vaginal pruritus Musc Musc: Reports system reviewed and no additional complaints, except as documented Exam Const General: cooperative, healthy appearing and comfortable Resp Effort Inspection: normal respiratory effort GI Palpation: soft and nontender Rectal Exam: other Extrem General: no edema Coding Level of Care Code No Charge Diagnoses Status post hysterectomy Z90.710 Uterine fibroid D25.9 Endometriosis N80.9 Assessment and Plan Assessment and Plan (1) Status post hysterectomy: Status: Acute Comment: Robotic Hyst, Cysto (2) Uterine fibroid: Status: Acute Comment: discussed options, workup ordered. needs cbc US EMB and discussed Myfembree vs Hysterectomy. 7 cm fibroid, pap and EMB done, recommend robotic TLHBS. (3) Endometriosis: Status: Acute Plan pt is healing well without major complaints. she is not taking any pain medication for her pain. recommend trying the motrin that was prescribed for a day and if no improvement, fever development, or worsening pain to call me back and I will start with a pelvic ultrasound. 01/08/24 1029 Date Melody Rogers Isha Rodriguez Signature: Date (if applicable) CC: Normal [facility] Basic Metabolic Profile (BMP )on 12-26-2023 BUN/CRE 17.3 RATIO Normal 10-20 [facility] Comment on above: Performed By: #### L 500.2500 #### [facility] Laboratory [address] [place], [address] CA,Total 9.8 mg/dL Normal 8.5-10.1 [facility] Comment on above: Performed By: #### L 500.2500 #### [facility] [address] [place], [address] Chloride [Moles/Vol] 105 mmol/L Normal 98-107 [facility] Comment on above: Performed By: #### L 500.2500 #### [facility] [address] [place], [address] CO2 [Moles/Vol] 31.0 mmol/L Normal 21.0-32.0 [facility] Comment on above: Performed By: #### L 500.2500 #### [facility] [address] [place], [address] Creatinine [Mass/Vol] 0.69 mg/dL Normal 0.55-1.02 [facility] Comment on above: Result Comment: The validity of the calculated GFR GFRAA in patients over 70 years has not been determined. Clinical correlation is essential. Performed By: #### L 500.2500 #### [facility] [address] [place], [address] ECRCL 102.97 ml/min Normal [facility] Comment on above: Performed By: #### L 500.2500 #### [facility] [address] [place], [address] EST GFR - AA 115 mL/min Normal >60 [facility] Comment on above: Result Comment: Afri can Filipino GFR Calc Performed By: #### L 500.2500 #### [facility] [address] [place], [address] GAP 5 Normal 5-15 [facility] Comment on above: Performed By: #### L 500.2500 #### [facility] [address] [place], [address] GFR/1.73 sq M.predicted among non-blacks MDRD (S/P/Bld) [Vol rate/Area] 95 mL/min/{1.73_m2} Normal >60 [facility] Comment on above: Result Comment: Non- GFR Calc Performed By: #### L 500.2500 #### [facility] [address] [place], [address] Glucose [Mass/Vol] 86 mg/dL Normal 74-106 [facility] Comment on above: Performed By: #### L 500.2500 #### [facility] [address] [place], [address] Potassium [Moles/Vol] 3.5 mmol/L Normal 3.5-5.1 [facility] Comment on above: Performed By: #### L 500.2500 #### [facility] [address] [place], [address] Sodium [Moles/Vol] 141 mmol/L Normal 136-145 [facility] Comment on above: Performed By: #### L 500.2500 #### [facility] [address] [place], [address] Urea nitrogen [Mass/Vol] 12 mg/dL Normal 7-18 [facility] Comment on above: Performed By: #### L 500.2500 #### [facility] [address] [place], [address] Bedside Glucoseon 12-26-2023 FINGERSTICK GLU 81 mg/dL Normal 74-106 [facility] Comment on above: Result Comment: NOLBERTO MCKINNEY OF PATIENT CARE PER NURSING PROTOCOL Performed By: #### L 501.080 #### [facility] [address] [place], [address] Discharge Instructionon 11-30 Discharge Instruction [facility] Medical Records Department [address] [place] [address] Instructions for Home/Discharge Instructions 12/26/23 07 MR#: [id number] Acct: [id number] Name: PARVIN MONTEJO Rep #: [id number] : 1970 53 From: Melody Adan DO PCP: Care Physician,No [place] [facility] [place] Instructions Diet Discharge Diet: No restrictions Activity Discharge Activity: May Shower and - (may walk and use stairs sparingly. Nothing in the vagina, and no intercourse x 8 weeks. ) May resume sexual activity in: 6 weeks Weight Bearing Status: Full weight bearing Lifting Restrictions: 10 pounds Dressing / Incision Call your doctor if your incision/area has: Continuous Slow Oozing, Sudden Increased Bleeding, Increased Pain/ Swelling, Increased Redness and Foul Smelling Discharge Call your doctor if you observe: Fever of 101 or Higher, Using more than 1 pad per hour, Shortness of breath, Chest pain and Uncontrolled pain Suture Line Care: Avoid Pulling/Pushing and Avoid Pinching/Bending Remove Dressing in: 1 week (if present) Cleanse incision/area with: Soap Water and Keep Dressing Clean Dry Follow Up Care Please Follow Up With: Melody Adan DO When: Call to make an appointment with your doctor for a postop visit in 2 and 6 weeks Test Results: Test results from this visit will be discussed in further detail at your follow-up appointment, if applicable. Discharge Plan Admission Primary Reason for Your Visit: hysterectomy Attending Provider: Melody Adan Primary Care Provider: Care Physician,No Primary Instructions Print Language: Kazakh Discharge Orders/Prescriptions Prescriptions: New ibuprofen 800 mg tablet 800 mg PO Q8H PRN (Reason: pain) Qty: 30 0RF oxycodone-acetaminophen [Percocet] 5-325 mg tablet 1 tab PO Q4H PRN (Reason: pain) 7 Days Qty: 20 0RF Rx Instructions: 1-2 tabs q 4 hrs as needed for pain No Action Complex B-100 Tablet Extended Release 1 tab PO DAILY Other Ambulatory Orders: 12 Lead EKG (Routine) Timeframe: 20231218 Location: None Selected Ordered By: Dr. Delfino Mayorga Referrals / Follow Up: Care Physician,No Primary [Primary Care Provider] - Disposition Disposition (needs filled in before D/C Order can be placed): Home, Self Care 12/26/23725 Melody Adan DO CC: No Primary Care Physician Signed [facility] MR/POSTOP.[facility] 12-26-2023 MR/POSTOP.[facility] Medical Records Department [address] [place] [address] Anesthesia Postop Eval I 12/26/2339 MR#: [id number] Acct: [id number] Name: PARVIN MONTEJO Rep #: [id number] : 1970 53 From: Judy Medina CRNA PCP: Care Physician,No Primary Status:REG SDC Y Race: C Location: [place] [address] Anesthesia: Postop Eval I Current Vital Signs Temperature: 98 F Pulse Rate: 66 Blood Pressure: 108/72 Respiratory Rate: 20 Pulse Ox: 98 Oxygen Delivery Method: Room Air Assessment Airway patent: Yes Spontaneous unlabored respirations: Yes Mental status: Awake nausea: No Vomiting: No Anesthesia Complication: No Fluid Hydration Crystalloid volume administer (ml): 1,300 Total IV fluid infused: 1,300 Progress Note Anesthesia document: Postop Eval 1 completed: Yes 12/26/23939 Date Judy Medina CRNA Cosigner Signature: Date CC: Signed Normal [facility] MR/[id number] 12-26-2023 MR/POSTOPAN2 [facility] Medical Records Department [address] [place] [address] Anesthesia Postop Eval II 12/26/23 0954 MR#: [id number] Acct: [id number] Name: PARVIN MONTEJO Rep #: [id number] : 1970 53 From: Naren Bennett MD PCP: Care Physician,No Primary Status:REG SDC Y Race: C Location: [address] Anesthesia Postop Eval I Sum Postop Eval Completion status Anesthesia document: Postop Eval 1 completed: Yes Anesthesia Postop Eval I Summary Anesthesia Postop Eval I Summary: Anesthesia Postop Eval I: Assessment Summary Airway patent Yes 12/26/23 09:40 [employer].JDEF Spontaneous unlabored Yes 12/26/23 09:40 [employer].JDEF respirations Mental status Awake 12/26/23 09:40 [employer].JDEF nausea No 12/26/23 09:40 [employer].JDEF Vomiting No 12/26/23 09:40 [employer].JDEF Anesthesia Postop Eval I: Fluid Summary Crystalloid volume administer 1,300 12/26/23 09:40 [employer].JDEF (ml) Colloids volume administered ( ml) Blood Product volume administered (ml) Total IV fluid infused 1,300 12/26/23 09:40 [employer].JDEF Anesthesia Postop Eval I: Summary Notes Anesthesia Complication No 12/26/23 09:40 [employer].JDEF Anesthesia Complication Comment: Post-operative progress note Anesthesia: Postop Eval II Evaluation Mental status: Awake Pain Level: 0 nausea: No Vomiting: No 12/26/23954 Date Naren Bennett MD Cosigner Signature: Date CC: Signed Normal [facility] Operative Reporton 4 Operative Report [facility] Medical Records Department [address] [place] [address] Operative Report 12/26/23 0915 MR#: [id number] Acct: [id number] Name: PARVIN MONTEJO Rep #: [id number] : 1970 53 From: Melody Adan DO PCP: Care Physician,No Primary Status:[facility] Location: [place] [address] Problems Associated Problem List Diagnoses (1) Uterine fibroid: (2) Endometriosis: Report of Operation Date of Procedure: 12/26/23 Pre-Operative Diagnosis: large fibroid uterus, history of endometriosis, pelvic pain and menorrhagia Post-Operative Diagnosis: large fibroid uterus, history of endometriosis, pelvic pain and menorrhagia Surgery/Procedure Performed:: total robotic hysterectomy, bilateral salpingectomy, cystoscopy Description of Surgical Findings:: Findings: 11 cm size posterior fibroid uterus, normal appearing right ovary and tube. Left ovary contained a 2 cm endometrioma and a normal fallopian tube On exploration of the abdominal cavity the uterus, adnexa, bowel, and liver were found to be normal. Cystoscopy showed no evidence of leaking at approximately 250 cc of normal saline, positive ureteral orifices and jet flow are seen and no suture material was appreciated in the bladder. Specimens removed: Uterus and cervix, Bilateral tubes Reason for surgery: This is a 52-year-old G1, P1 who presented to my office with history of pelvic and back pain, heavy periods, and ultrasound finding or a left ovarian endometrima and large 11cm fibroid uterus. the planned procedure is for a robotic hysterectomy the risks benefits and alternatives were discussed with the patient the patient had a clear understanding of the procedure and a consent form was signed. Surgeon: Melody Adan boilermaking supervisor: Paulette Arreola boilermaking supervisor: Ramos Nunez Type of Anesthesia: General Specimen's removed: uterus, fallopian tubes Drains: none Estimated Blood Loss (mL): 50cc Description of Procedure: Procedure: The patient was placed in the dorsal low lithotomy position and prepped and draped in the normal sterile fashion both abdominally and in the perineum. Her legs were placed in stirrups a Og catheter was inserted into the urethra without difficulty. A weighted speculum was placed in the vagina and a single-tooth tenaculum was used to grasp the anterior lip of the cervix. An advincula uterine manipulator was inserted through the cervix without complication. It was then tied into place at the 2 and 10:00 locations on the cervix. Gloves were changed and attention was turned towards the abdomen. Approximately 23 cm above the pubic symphysis in the midline, and after Marcaine injection, a 8 mm incision was made. An 8 mm trocar was inserted through the laparoscope, then inserted into the abdomen under direct visualization using the laparoscope. Good abdominal placement was noted and no complications were appreciated. An air seal device was utilized to create pneumoperitoneum. At 12 cm lateral to the midline on the left and right sides 8 mm accessory ports were placed. Next a left upper quadrant 8 mm licensed nursing assistant port site was placed. The patient was placed in steep Trendelenburg position. The robot was docked. The hysterectomy was initiated first by taking down the round ligament on each side using the vessel sealer device. The mesosalpinx between the fallopian tube and IP ligament was and cut. These areas were freed without complication the broad ligament was then and taken down using the vessel sealer device. Next the bladder flap was taken down without complication. This was done using monopolar cautery to the level of the cervical vaginal junction. After the bladder flap was created, uterine vessels were then isolated and cauterized using the vessel sealer device and EndoShears. At this point the uterine vessels were taken down further starting from the ascending branch, dissecting along the edges of the cervix to the level of the cervical vaginal junction with hemostasis appreciated. The cervical vaginal junction was then using monopolar cautery in a circumferential pattern across the superior aspect of the cervix. The specimen was delivered through the vagina with minimal morselation and sent to pathology. The remaining vaginal cuff was then closed using a V lock suture. This was performed in a running technique. Excellent hemostasis was obtained and good closure was noted. Irrigation was then performed. All operative sites were noted to be hemostatic. The left ovarian endometrioma was incised and drained then cauterized using the bovie. A cystoscopy was performed with a 70 degree cystoscope through the urethra into the bladder without complication. The bladder was instilled with approximately 250 cc of normal saline. Intraoperative images were made. Ureteral orifices and jets were identified (more content not included)... Normal [facility] ,Urineon 12-26-2023 Beta HCG ( test) Ql (U) Negative Normal [facility] Comment on above: Result Comment: Very dilute urine specimens, as indicated by a low specific gravity, may not contain patient account representative levels of hCG. If is still suspected, a first morning urine specimen should be collected 48 hours later and tested. Performed By: #### B TSPAT, L400.7600 ####[facility] [id number] [place], [address] Surgery Specimen Level Von 0 12-26-2023 Surgery Specimen Level V Patient Age/Sex Location Account Attending Physician PARVIN MONTEJO 53/[place] [facility] [place] [id number] Karen Bains Specimen: [id number] Received: 12/26/23 Status: ANTWAN Bernstein Num: [id number] Spec Type: HYSTERECT Subm Dr: Dr. Melody Adan DO HEADER OPERATION: Laparoscopic robotic hysterectomy, bilateral salpingectomy PRE-OP DIAGNOSIS: Uterine fibroid, endometriosis TISSUE SUBMITTED: Uterus and bilateral fallopian tubes MICROSCOPIC DIAGNOSIS Uterus, bilateral fallopian tubes, hysterectomy, bilateral salpingectomy: Cervix - Chronic inflammation Endometrium - Proliferative endometrium Myometrium - Intramural, submucosal and subserosal leiomyomas (largest measuring 7.0cm in greatest dimension). -Focal adenomyosis. Bilateral fallopian tubes- No pathologic diagnosis. SJ.mr 12/27/2023 COMMENT Please make reference to previous specimen [id number] endometrial biopsy with diagnosis of proliferative endometrium. MICROSCOPIC DESCRIPTION Slides are reviewed. GROSS DESCRIPTION Received in fixative is one container labeled with the patient's name and designated uterus, cervix, bilateral fallopian tubes. The specimen consists of a hysterectomy specimen consisting of uterus with cervix and attached right fallopian tube and detached left fallopian tube. The uterus with cervix weighs 347 gm and measures 11.0 x 11.0 x 11.0 cm. The serosal surface is huynh glistening. A few subserosal nodules are noted. The ectocervical mucosa is unremarkable. The external os is oval in contour. The endocervical canal measures 3.5 cm in length and the endocervical mucosa is huynh glistening and unremarkable. The endometrial cavity is narrow and compressed due to submucosal nodular masses and measures 5.5 cm in length and 2.0 cm in width. The endometrium is huynh glistening without any mass lesions and measures 0.1 cm in thickness. Section of the uterine wall reveal multiple intramural submucosal and subserosal nodular masses. Largest mass is subserosal to intramural location and measures 7.0cm in greatest dimension. Sections of these masses reveal huynh whorled cut surfaces without areas of hemorrhage, necrosis or cystic degeneration. Uninvolved uterine wall measures up to 3.5cm in thickness. Right fallopian tube measures 7.5cm in length and 0.7cm in diameter. Fimbrial end is identified. Sections reveal unremarkable cut surfaces. Left fallopian tube is similar in appearance to right and measures 5.5cm in length and up to 1.0cm in diameter. Service Assistant sections are submitted Patient Age/Sex Location Account Attending Physician PARVIN MONTEJO 53/F [facility] [id number] Karen Bains in twelve cassettes as follows: 1 - anterior cervix, 2 - posterior cervix, 3 4 - anterior uterine wall, 5 6 - posterior uterine wall, 7- largest nodular mass, 8- second largest nodular mass, 9- third largest nodular mass, 10- smaller nodular masses, 11- right fallopian tube, 12- left fallopian tube. SJ: 12/26/2023 TC:1 CPT: 85047 Patient Age/Sex Location Account Attending Physician PARVIN MONTEJO 53/F [facility] [id number] Karen Bains Signed (signature on file) Dr. Elieser Abernathy MD 12/27/23 1144 Normal [facility] Comment on above: Performed By: #### P SUV #### [facility] Laboratory [address] [place], [place], [id number] Type AND Screen - PAT ONLYon 12-26-2023 Ab SCREEN GEL Negative Normal [facility] Comment on above: Order Comment: Surge ry Date: 12/26/23Reason for Laboratory Test [id number] ROBOTIC HYSTERECTOMY Performed By: #### B TSPAT, L400.7600 ####[facility] [address] [place], [address] President And Cmo Office Visit Reporton 12-20-2023 President And Cmo Office Visit Report [facility] [place] [address], [address] [place] [address] OFFICE VISIT Date of Service: 12/20/23 MR#: [id number] Acct: [id number] Name: PARVIN MONTEJO Rep #: [id number] : 1970 Provider: Dr. Melody Geiger DO Age/Sex: 53/F [place] [facility] [place] Status: Signed Intake Vital Signs 11/08/23 16:11 12/20/23 13:03 12/20/23 13:05 Height 5 ft 4 in 5 ft 4 in 5 ft 4 in Weight: 194 lb BMI 33.3 BP 114/76 Intake Visit Reasons: robotic total hyst BS 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 Is patient in pain?: No Allergies No Known Allergies Allergy (Verified 12/20/23 13:03) Medications ???Medication ???Instructions ???Recorded ???Confirmed ???Type vitamin B complex (Complex B-100 1 tab PO DAILY 12/13/23 12/20/23 History tablet,extended release) Post menopausal: No Patient : No : No PFSH Medical History Preop testing PONV (postoperative nausea and vomiting) Wears glasses Restless legs Migraine headache Non-smoker History of edema Uterine fibroid Endometriosis Surgical History History of wisdom tooth extraction H/O laparoscopy Family History Father Colon cancer Grandmother Uterine cancer, Onset Age: 78 Other Heart disease Social History adopted: No number of children: 1 current occupational status: employed current occupation: House cleaning Smoking Status: Never smoker alcohol intake: never substance use type: does not use additional social history: Spouse - Maria T (drafting in a [employer] shop) HPI robotic total hyst BS Details: PARVIN MONTEJO is a 53 year old (vaginal) who presents for preop hysterectomy. She is scheduled for a robotic hysterectomy. She has a history of heavy periods and now has low back pain and sever pressure and pain in her abdominal area. pain radiates to her knees at time. EMB was benign. Ultrasound shows the following: The uterus is anteverted and is in a midline position. The uterus measures 11.7 cm x 10.1 cm x 7.1 cm. There is a Nabothian cyst of the cervix. The endometrium is thickened and measures 15 mm in thickness, and is hyperechoic. There is no demonstrated endometrial mass. Multiple uterine fibroids are seen. The largest is a pedunculated fibroid measuring 7.3 cm x 6.1 cm by 4.4 cm. I.U.D. - The patient does not have an I.U.D. The right ovary is visualized. The right ovary measures 2.6 cm x 1.6 cm x 1.4 cm. There is no right ovarian cyst or ovarian mass. There is no visualized right adnexal mass or complex lesion. There is normal arterial and normal venous vascularity. The left ovary is visualized. The left ovary measures 4.2 cm x 2.1 cm x 1.3 cm. There is no left ovarian cyst or ovarian mass. There is no visualized left adnexal mass or complex lesion. There is normal arterial and normal venous vascularity. There is no fluid in the cul-de-sac. The pre void volume of the bladder was 206 ml. US/Pelvic w/ Transvaginal IMPRESSION: Multiple uterine fibroids. Thickened endometrium. History 1 Elective abortions Hx Para 1 Spontaneous abortions Hx # Term Pregnancies Ectopic pregnancies Hx # Pregnancies Multiple births # of living children 1 Past Pregnancies Del. Date Name GA/Weeks Outcome Route Bth Weight Gen Labor Lgth Anesthesia Del Locatn Provider FOB Unknown Evette 1995 ROS Const ROS Unobtainable: All systems reviewed are unremarkable except as noted in H Resp Resp: Reports system reviewed and no additional complaints, except as documented; Denies cough GI GI: Reports as per HPI Psych Psych: Reports system reviewed and no additional complaints, except as documented Exam Const General: cooperative, healthy appearing, comfortable and no acute distress Resp Effort Inspection: normal respiratory effort Skin General: no rashes or lesions noted Psych Appearance: grossly normal Speech and Movement: speech and movement normal Coding Level of Care Code Off vis,est,level 4 Diagnoses Uterine fibroid D25.9 Endometriosis N80.9 Assessment and Plan Assessment and Plan (1) Uterine fibroid: Status: Acute Comment: discussed options, workup ordered. needs cbc US EMB and discussed Myfembree vs Hysterectomy. 7 cm fibroid, pap and EMB done, recommend robotic TLHBS. (2) Endometriosis: Status: Acute Plan: After discussing the patient's diagnosis and treatment plan options, patient wishes to proceed with surgical management. I have discussed with the patient the risks, b (more content not included)... Normal [facility] 12 Lead EKGon 12-18-2023 12 Lead EKG [facility] Cardiovascular Services [address] [place] [address] 12 Lead EKG 12/18/23 0855 MR#: [id number] Acct: [id number] Name: PARVIN MONTEJO Rep #: [id number] : 1970 53 From: Gabbie Diaz MD Attending Dr: Dr. Melody Adan, Statu s: REG [facility] Ordering Dr: Delfino Mayorga MD Date: 12/18/23 Location[place] [facility] Sex: F C Admitted: Test Reason : PRE OP Blood Pressure : / mmHG Vent. Rate : 066 BPM Atrial Rate : 066 BPM P-R Int : 142 ms QRS Dur : 088 ms QT Int : 388 ms P-R-T Axes : 068 028 -02 degrees QTc Int : 406 ms Normal sinus rhythm Low voltage QRS Nonspecific T wave abnormality Abnormal ECG Confirmed by JAMARI SHAW, JOEL ([id number]), newspaper editor managing MARISA RAJAN ([id number]) on 12/22/2023 6:10:44 AM Referred By: Melody Adan Confirmed By:TOM DIAZ MD 12/22/23 0610 Date Gabbie Diaz MD CC: Dr. Delfino Mayorga MD; Dr. Melody Adan, DO; No Primary Care Physician Signed Normal [facility] Magnesiumon 12-18-2023 Magnesium [Mass/Vol] 2.1 mg/dL Normal 1.6-2.6 [facility] Comment on above: Result Comment: Slig ht Hemolysis, Result may be falsely increased. Performed By: #### L 501.5200, BTSPAT #### [facility] Laboratory [address] [place], [place], [id number] Type AND Screen - PAT ONLYon 12-18-2023 A1 CELL Not performed Normal [facility] Comment on above: Order Comment: Reaso n for Laboratory Test preop 20231218 No N N S 0600 hysterectomy Result Comment: This specimen has been REJECTED due to Laboratory criteria: MisLabelled. KATHARINA LUBIN has been notified of need of recollection. 12/18/23 1247 Tello Cavazoson Performed By: #### L 501.5200, BTSPAT #### [facility] Laboratory [address] [place], [place], [id number] Ab SCREEN GEL Not performed Normal [facility] Comment on above: Order Comment: Reaso n for Laboratory Test preop 20231218 No N N S 0600 hysterectomy Result Comment: This specimen has been REJECTED due to Laboratory criteria: MisLabelled. KATHARINA LUBIN has been notified of need of recollection. 12/18/23 1247 Tello Stone Performed By: #### L 501.5200, BTSPAT #### [facility] Laboratory [address] [place], [place], [address] ABO and Rh group Nom (Bld) Test Not Performed Normal [facility] Comment on above: Order Comment: Reaso n for Laboratory Test preop 20231218 No N N S 0600 hysterectomy Result Comment: This specimen has been REJECTED due to Laboratory criteria: MisLabelled. KATHARINA LUBIN has been notified of need of recollection. 12/18/23 1247 Tello Stone Performed By: #### L 501.5200, BTSPAT #### [facility] Laboratory [address] [place], [place], [address] ANTI A Not performed Normal [facility] Comment on above: Order Comment: Reaso n for Laboratory Test preop 20231218 No N N S 0600 hysterectomy Result Comment: This specimen has been REJECTED due to Laboratory criteria: MisLabelled. KATHARINA LUBIN has been notified of need of recollection. 12/18/23 1247 Tello Stone Performed By: #### L 501.5200, BTSPAT #### [facility] Laboratory [address] [place], [address] ANTI B Not performed Normal [facility] Comment on above: Order Comment: Reaso n for Laboratory Test preop 20231218 No N N S 0600 hysterectomy Result Comment: This specimen has been REJECTED due to Laboratory criteria: MisLabelled. KATHARINA LUBIN has been notified of need of recollection. 12/18/23 1247 Tello Stone Performed By: #### L 501.5200, BTSPAT #### [facility] Laboratory [address] [place], [address] ANTI D Not performed Normal [facility] Comment on above: Order Comment: Reaso n for Laboratory Test preop 20231218 No N N S 0600 hysterectomy Result Comment: This specimen has been REJECTED due to Laboratory criteria: MisLabelled. KATHARINA LUBIN has been notified of need of recollection. 12/18/23 1247 Tello Stone Performed By: #### L 501.5200, BTSPAT #### [facility] Laboratory [address] [place], [address] B CELLS Not performed Normal [facility] Comment on above: Order Comment: Reaso n for Laboratory Test preop 20231218 No N N S 0600 hysterectomy Result Comment: This specimen has been REJECTED due to Laboratory criteria: MisLabelled. KATHARINA LUBIN has been notified of need of recollection. 12/18/23 1247 Tello Cavazoson Performed By: #### L 501.5200, BTSPAT #### [facility] Laboratory [address] [place], [address] BLD TYPE RECHEK Not performed Normal [facility] Comment on above: Order Comment: Reaso n for Laboratory Test preop [id number] No N N S 0600 hysterectomy Result Comment: This specimen has been REJECTED due to Laboratory criteria: MisLabelled. KATHARINA LUBIN has been notified of need of recollection. 12/18/23 1247 Tello Cavazoson Performed By: #### L 501.5200, BTSPAT #### [facility] Laboratory [address] [place], [address] PAP IG HPV APTIMA 16/18,45on 11-12-2023 ADEQ Comment Normal . [facility] Comment on above: Order Comment: Speci men Comment: [id number] Specimen Comment: Source.............Cervix;Endocervix Specimen Comment: Other..............Post Menopausal Specimen Comment: No. of containers..01 ThinPrep Vial Result Comment: Sati sfactory for evaluation. No endocervical component is identified. Performed By: #### L 7400.0280 #### [facility] Laboratory [address] [place], [address] COMM . Normal . [facility] Comment on above: Order Comment: Speci men Comment: [id number] Specimen Comment: Source.............Cervix;Endocervix Specimen Comment: Other..............Post Menopausal Specimen Comment: No. of containers..01 ThinPrep Vial Performed By: #### L 7400.0280 #### [facility] Laboratory [address] [place], [address] COMMENT Comment Normal . [facility] Comment on above: Order Comment: Speci men Comment: [id number] Specimen Comment: Source.............Cervix;Endocervix Specimen Comment: Other..............Post Menopausal Specimen Comment: No. of containers..01 ThinPrep Vial Result Comment: This liquid based ThinPrep(R) pap test was screened with the use of an image guided system. Performed By: #### L 7400.0280 #### [facility] Laboratory [address] [place], [place], [address] DIAG Comment Normal . [facility] Comment on above: Order Comment: Speci men Comment: [id number] Specimen Comment: Source.............Cervix;Endocervix Specimen Comment: Other..............Post Menopausal Specimen Comment: No. of containers..01 ThinPrep Vial Result Comment: NEGA TIVE FOR INTRAEPITHELIAL LESION OR MALIGNANCY. LYMPHOCYTIC (FOLLICULAR) CERVICITIS. Performed By: #### L 7400.0280 #### [facility] Laboratory [address] [place], [place], [address] HPV APTIMA, HR Negative Normal Negative [facility] Comment on above: Order Comment: Speci men Comment: [id number] Specimen Comment: Source.............Cervix;Endocervix Specimen Comment: Other..............Post Menopausal Specimen Comment: No. of containers..01 ThinPrep Vial Result Comment: This nucleic acid amplification test detects fourteen high- risk HPV types (16,18,31,33,35,39,45,51,52,56,58,59,66,68) without differentiation. Performed By: #### L 7400.0280 #### [facility] [address] [place], [place], [address] HPV Tana Rfx Comment Normal . [facility] Comment on above: Order Comment: Speci men Comment: [id number] Specimen Comment: Source.............Cervix;Endocervix Specimen Comment: Other..............Post Menopausal Specimen Comment: No. of containers..01 ThinPrep Vial Result Comment: Crit eria not met, HPV Genotype not performed. Performed at: - [facility] [id number] Non Linear Editor: Daja Xavier MD, Phone: [phone] Performed at: =G - [facility] [id number] Non Linear Editor: Daja Xavier MD, Phone: [phone] Performed By: #### L 7400.0280 #### [facility] Laboratory [address] [place], [address] PAPSMR Comment Normal . [facility] Comment on above: Order Comment: Speci men Comment: [id number] Specimen Comment: Source.............Cervix;Endocervix Specimen Comment: Other..............Post Menopausal Specimen Comment: No. of containers..01 ThinPrep Vial Result Comment: The Pap smear is a screening test designed to aid in the detection of premalignant and malignant conditions of the uterine cervix. It is not a diagnostic procedure and should not be used as the sole means of detecting cervical cancer. Both false-positive and false-negative reports do occur. Performed By: #### L 7400.0280 #### [facility] [address] [place], [address] PERFORM Comment Normal . [facility] Comment on above: Order Comment: Speci men Comment: [id number] Specimen Comment: Source.............Cervix;Endocervix Specimen Comment: Other..............Post Menopausal Specimen Comment: No. of containers..01 ThinPrep Vial Result Comment: Rufino Hawthorne, Sod Farmer (ASCP) Performed By: #### L 7400.0280 #### [facility] [address] [place], [address] President And Cmo Office Visit Reporton 11-08-2023 President And Cmo Office Visit Report [facility] [address] [place] [address] OFFICE VISIT Date of Service: 11/08/23 MR#: [id number] Acct: [id number] Name: PARVIN MONTEJO Rep #: [id number] : 1970 Provider: Dr. Sera borges MD Age/Sex: 53/F Location[place] [facility] [place] Status: Signed Intake Vital Signs 10/02/23 15:47 11/08/23 16:10 11/08/23 16:11 Height 5 ft 4 in 5 ft 4 in 5 ft 4 in Weight: 191 lb 191 lb BMI 32.8 32.8 BP 130/80 H 135/85 H Intake Visit Reasons: 3-4WK FU, EMB/Surgical consult per KW 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 Is patient in pain?: No Allergies No Known Allergies Allergy (Unverified 11/08/23 16:10) Medications ???Medication ???Instructions ???Recorded ???Confirmed ???Type NK 10/02/23 11/08/23 History Patient : No : No PFSH Medical History (Updated 11/08/23 @ 17:[address] Sera Bowser MD) Uterine fibroid Endometriosis Surgical History H/O laparoscopy Family History Father Colon cancer Grandmother Uterine cancer, Onset Age: 78 Other Heart disease Social History adopted: No number of children: 1 current occupational status: employed current occupation: House cleaning Smoking Status: Never smoker alcohol intake: never substance use type: does not use additional social history: Spouse - Maria T (drafting in a [employer]) HPI 3-4WK FU, EMB/Surgical consult per KW Details: PARVIN MONTEJO is a 53 year old who presents for follow up, she has an enlarged uterus with fibroids, irreuglar heavy menses. she has pelvic pressure and pain, tailbone and low back pain. she is wanting a hysterectomy. menses heayv every 30-90 days Female Reproductive History Menopausal Symptoms: No hot flashes, No night sweats, No difficulty concentrating and No change in libido History 1 Elective abortions Hx Para 1 Spontaneous abortions Hx # Term Pregnancies Ectopic pregnancies Hx # Pregnancies Multiple births # of living children 1 Past Pregnancies Del. Date Name GA/Weeks Outcome Route Bth Weight Infant Gen Labor Lgth Anesthesia Del Locatn Provider FOB Unknown Evette 1994 ROS Const Constitutional: Denies fatigue, night sweats, weight gain or weight loss ENT ENT: Reports system reviewed and no additional complaints, except as documented Cardio Card: Denies chest pain Resp Resp: Denies cough or dyspnea GI GI: Reports as per HPI; Denies constipation, nausea or vomiting : Reports as per HPI; Denies hot flashes, nipple discharge, vaginal discharge, vaginal dryness, vaginal odor or vaginal pruritus Musc Musc: Denies arthralgias, back pain or muscle weakness Skin Skin/Breast: Denies alopecia, change in hair, dry skin, breast mass, breast pain, breast skin changes or nipple discharge Neuro Neuro: Reports system reviewed and no additional complaints, except as documented Psych Psych: Reports system reviewed and no additional complaints, except as documented; Denies change in libido or difficulty concentrating Endo Endo: Denies cold intolerance, excessive sweating, heat intolerance or polydipsia Yogesh/Lymph Hematologic/Lymphatic: Denies easy bleeding, Denies easy bruising and Denies lymphadenopathy Exam Const General: cooperative, healthy appearing, comfortable, no acute distress and well developed Orientation: alert [facility] Head: normal to inspection and normocephalic Ears: hearing grossly normal bilaterally and external ears normal Nose: external nose normal and nares normal Face and sinus: normal facial exam Neck Neck: normal visual inspection and no lymphadenopathy Thyroid: thyroid normal Chest Chest palpation inspection: normal inspection of the chest Resp Effort Inspection: normal respiratory effort Auscultation: clear to auscultation bilaterally Cardio Rate: regular rate Rhythm: regular rhythm Heart Sounds: S1 normal and S2 normal GI Inspection: normal to inspection and non-distended Palpation: soft and no hepatosplenomegaly General: bladder normal to palpation External Female Exam: normal external appearance and normal appearance of the urethra Urethra: normal appearance of the urethra, normal palpation and no discharge Speculum Exam - Vagina: normal appearance of the vagina and normal vaginal discharge Speculum Exam - Cervix: normal appearance of the cervix and nontender Bimanual Exam- Vagina Uterus: normal bimanual exam, bladder normal to palpation, No tender, uterine mobility normal, normal palpation, non-tender, enlarged (mildly enlarged. ), nodular and ot her (cul de sac fullness, 12 week size but fills posteriorly wit (more content not included)... Normal [facility] Surgery Specimen Level [place] 11-08-2023 Surgery Specimen Level IV Patient Age/Sex Location Account Attending Physician PARVIN MONTEJO 53/F [facility] [id number] Dr. Sera Bowser MD Specimen: [id number] Received: 11/08/23 Status: ANTWAN Bernstein Num: [id number] Spec Type: ENDOM BX/C Subm Dr: Dr. Sera Bowser MD HEADER OPERATION: Endometrial biopsy PRE-OP DIAGNOSIS: Abnormal uterine bleeding TISSUE SUBMITTED: Endometrial lining MICROSCOPIC DIAGNOSIS Endometrial biopsy: Proliferative endometrium. [facility] 11/10/2023 MICROSCOPIC DESCRIPTION Slides are reviewed. GROSS DESCRIPTION Received is one container labeled with the patient's name and not further designated. The specimen consists of multiple irregular fragments of hemorrhagic mucoid tissue that in aggregate measure 2.5 x 2.5 x 0.3 cm. The specimen is totally submitted in one cassette. [facility] 11/09/2023 TC:4 CPT:56509 Patient Age/Sex Location Account Attending Physician PARVIN MONTEJO 53/F [facility] [id number] Dr. Sera Bowser MD Signed (signature on file) Dr. Elieser Abernathy MD 11/10/23 1236 Normal [facility] Comment on above: Performed By: #### P SUIV ####[facility] [address] [place], [place], [id number] Pelvic w/ Transvaginalon Pelvic w/ Transvaginal [facility] Imaging Services [address] [place], [place] [address] Pelvic w/ Transvaginal MR#: [id number] Acct: [id number] Name: PARVIN MONTEJO Rep #: [id number] : 1970 F 53 From: Terrell cam MD PCP: Care Physician,No Primary Status: [facility] Study: Pelvic w/ Transvaginal Date of Exam: 10/16/23 Exam# [id number] Ordering Dr: Sera Bowser [id number] STUDY: ULTRASOUND OF THE FEMALE PELVIS - COMPLETE REASON FOR EXAM: Female, 53 years old. AUB LMP: Patient is postmenopausal. TECHNIQUE: Transabdominal and Transvaginal TECHNICAL QUALITY: Adequate. COMPARISON: None. FINDINGS: The uterus is anteverted and is in a midline position. The uterus measures 11.7 cm x 10.1 cm x 7.1 cm. There is a Nabothian cyst of the cervix. The endometrium is thickened and measures 15 mm in thickness, and is hyperechoic. There is no demonstrated endometrial mass. Multiple uterine fibroids are seen. The largest is a pedunculated fibroid measuring 7.3 cm x 6.1 cm by 4.4 cm. I.U.D. - The patient does not have an I.U.D. The right ovary is visualized. The right ovary measures 2.6 cm x 1.6 cm x 1.4 cm. There is no right ovarian cyst or ovarian mass. There is no visualized right adnexal mass or complex lesion. There is normal arterial and normal venous vascularity. The left ovary is visualized. The left ovary measures 4.2 cm x 2.1 cm x 1.3 cm. There is no left ovarian cyst or ovarian mass. There is no visualized left adnexal mass or complex lesion. There is normal arterial and normal venous vascularity. There is no fluid in the cul-de-sac. The pre void volume of the bladder was 206 ml. US/Pelvic w/ Transvaginal IMPRESSION: Multiple uterine fibroids. Thickened endometrium. Electronically Signed: Terrell Weldon MD at 9:34 EDT Reading Location ID and State: [address] [place] [address] , Service support , CC: Dr. Sera Bowser MD; No Primary Care Physician Automated Cutting Machine Operator: Signed Normal [facility] CBC W/Diff, Automatedon 06-0 Absolute Lymph 2.24 X10 3/uL Normal 0.83-4.51 [facility] Comment on above: Performed By: #### L 100.0100 ####[facility] [address] [place], [address] Absolute Neut 5.1 X10 3/uL Normal 2.0-7.7 [facility] Comment on above: Performed By: #### L 100.0100 ####[facility] [address] [place], [address] Basophils/100 WBC (Bld) 0.7 % Normal 0-1 [facility] Comment on above: Performed By: #### L 100.0100 ####[facility] [address] [place], [address] Eosinophils/100 WBC (Bld) 1.4 % Normal 0-5 [facility] Comment on above: Performed By: #### L 100.0100 ####[facility] [address] [place], [address] Erythrocyte distribution width (RBC) [Ratio] 12.4 % Normal 11.6-14.6 [facility] Comment on above: Performed By: #### L 100.0100 ####[facility] [address] [place], [address] Hematocrit (Bld) [Volume fraction] 38.5 % Normal 37-47 [facility] Comment on above: Performed By: #### L 100.0100 ####[facility] [address] [place], [address] Hemoglobin (Bld) [Mass/Vol] 12.3 g/dL Normal 12.0-15.0 [facility] Comment on above: Performed By: #### L 100.0100 ####[facility] [address] [place], [address] IG% 0.900 Normal 0.0-0.9 [facility] Comment on above: Result Comment: IG% - Immature Granulocytes (promyelocytes, myelocytes and metamyelocytes) > 1% indicates that a LEFT SHIFT is Present. Performed By: #### L 100.0100 ####[facility] [address] [place], [address] Lymphocytes/100 WBC (Bld) 27.9 % Normal 19-41 [facility] Comment on above: Performed By: #### L 100.0100 ####[facility] [address] [place], [address] MCH (RBC) [Entitic mass] 29.6 pg Normal 27.0-32.0 [facility] Comment on above: Performed By: #### L 100.0100 ####[facility] [address] [place], [address] MCHC (RBC) [Mass/Vol] 31.9 g/dL Low 32-36 [facility] Comment on above: Performed By: #### L 100.0100 ####[facility] [address] [place], [address] MCV (RBC) [Entitic vol] 92.8 fL Normal 81-99 [facility] Comment on above: Performed By: #### L 100.0100 ####[facility] [address] [place], [address] Monocytes/100 WBC (Bld) 6.1 % Normal 0-10 [facility] Comment on above: Performed By: #### L 100.0100 ####[facility] [address] [place], [address] Neutrophils/100 WBC (Bld) 63.0 % Normal 47-70 [facility] Comment on above: Performed By: #### L 100.0100 ####[facility] [address] [place], [address] Nucleated RBC (Bld) [#/Vol] 0 10*3/uL Normal 0-5 [facility] Comment on above: Performed By: #### L 100.0100 ####[facility] [address] [place], [address] Platelet mean volume (Bld) [Entitic vol] 10.1 fL Normal 6.2-12.0 [facility] Comment on above: Performed By: #### L 100.0100 ####[facility] [address] [place], [address] Platelets (Bld) [#/Vol] 255 10*3/uL Normal 150-450 [facility] Comment on above: Performed By: #### L 100.0100 ####[facility] [address] [place], [address] RBC (Bld) [#/Vol] 4.15 10*6/uL Low 4.2-5.4 [facility] Comment on above: Performed By: #### L 100.0100 ####[facility] [address] [place], [address] RDW SD 42.2 fl Normal 35.1-43.9 [facility] Comment on above: Performed By: #### L 100.0100 ####[facility] [address] [place], [address] WBC (Bld) [#/Vol] 8.0 10*3/uL Normal 4.4-11.0 [facility] Comment on above: Performed By: #### L 100.0100 ####[facility] [address] [place], [address] President And Cmo Office Visit Reporton 10-02-2023 President And Cmo Office Visit Report [facility] [address] [place] [address] OFFICE VISIT Date of Service: 10/02/23 MR#: [id number] Acct: [id number] Name: PARVIN MONTEJO Rep #: [id number] : 1970 Provider: Dr. 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 Sera Bowser MD) Uterine fibroid Endometriosis Surgical History (Updated 10/02/23 @ 15:51 by Marlene Jean) H/O laparoscopy Family History (Updated 10/02/23 @ 15:53 by Marlene Jean) Father Colon cancer Grandmother Uterine cancer, Onset Age: 78 Other Heart disease Social History (Updated 10/02/23 @ 15:55 by Marlene Jean) adopted: No number of children: 1 current occupational status: employed current occupation: House cleaning Smoking Status: Never smoker alcohol intake: never substance use type: does not use additional social history: Spouse - Maria T (drafting in a [employer]) HPI HYSTERECTOMY CONSULT Details: PARVIN MONTEJO is a 53 year old who presents for irregular menses and has a history of fibroids and heavy bleeding. she has significant dysmenorrhea. she feels pelvic pressur and discomfort, heavy bleeding, she had workup in the past and she had a vaginal delivery and the laparoscopy x 2 for endoemtriosis- cyst removed the first time second time was normal. she feels enlarged lower uterine fullness. Female Reproductive History Last Menstrual Period: 09/22/23 Cycle Length: 21-35 Bleeding Duration: 5 Questions: metorrhagia: No, sexually active: Yes, dyspareunia: No and PCB: No Menopausal Symptoms: No hot flashes, No night sweats, No weight change, No mood changes, No difficulty concentrating, No sleep problems and No change in libido History 1 Elective abortions Hx Para 1 Spontaneous abortions Hx # Term Pregnancies Ectopic pregnancies Hx # Pregnancies Multiple births # of living children 1 Past Pregnancies Del. Date Name GA/Weeks Outcome Route Bth Weight Infant Gen Labor Lgth Anesthesia Del Locatn Provider FOB Unknown Evette 1994 ROS Const Constitutional: Denies fatigue, night sweats, weight gain or weight loss ENT ENT: Reports system reviewed and no additional complaints, except as documented Cardio Card: Denies chest pain Resp Resp: Denies cough or dyspnea GI GI: Reports as per HPI; Denies constipation, nausea or vomiting : Reports as per HPI; Denies hot flashes, nipple discharge, vaginal discharge, vaginal dryness, vaginal odor or vaginal pruritus Musc Musc: Denies arthralgias, back pain or muscle weakness Skin Skin/Breast: Denies alopecia, change in hair, dry skin, breast mass, breast pain, breast skin changes or nipple discharge Neuro Neuro: Reports system reviewed and no additional complaints, except as documented Psych Psych: Reports system reviewed and no additional complaints, except as documented; Denies change in libido or difficulty concentrating Endo Endo: Denies cold intolerance, excessive sweating, heat intolerance or polydipsia Yogesh/Lymph Hematologic/Lymphatic: Denies easy bleeding, Denies easy bruising and Denies lymphadenopathy Exam Const General: cooperative, healthy appearing, comfortable, no acute distress and well developed Orientation: alert [facility] Head: normal to inspection and normocephalic Ears: hearing grossly normal bilaterally and external ears normal Nose: external nose normal and nares normal Face and sinus: normal facial exam Neck Neck: normal visual inspection and no lymphadenopathy Thyroid: thyroid normal Chest Chest palpation inspection: normal inspection of the chest Resp Effort Inspection: normal respiratory effort Auscultation: clear to auscultation bilaterally Cardio Rate: regular rate Rhythm: regular rhythm Heart Sounds: S1 normal and S2 normal GI Inspection: normal to inspection and non-distended Palpation: soft and no hepatosplenomegaly General: bladder normal to palpation External Female Exam: normal external appearance and normal appearance of the urethra Urethra: normal appearance of the urethra, normal palpation and no discharge Speculum Exam - Vagina: normal appearance (more content not included)... Normal [facility] 03-06-2023 CN Office Visit (UCWSTR ) PARVIN MONTEJO ([id number]) 1970 F Date Time Provider Department 03/06/23 9:30 AM NEDRA PATRICK [facility] During your visit today, we recorded the following information about you: Temperature Pulse Respiration Blood pressure 97.7 degrees 78/minute 16/minute 108/68 Weight 80.7 kg Nedra Patrick APRN.[facility] 03/06/2023 9:47 AM Signed CC: Patient presents with: Ear Problem: left ear pressure and dizziness with vomiting and nasal drainage x 2 days HPI: Parvin Montejo is a 52 year old female who presents to the office with complaint of head congestion, sinus symptoms, and ear symptoms for a few days. Symptoms are staying the same. Associated symptoms includes nasal congestion and facial pain/pressure. Denies fever, wheezing, dyspnea, and chest pain or pleuritic pain. Treatments tried include nothing so far. with no relief of symptoms. Sick contacts: unknown. History of asthma, frequent episodes of bronchitis, chronic bronchitis, bronchiectasis or COPD: No Smoker: No Seasonal/environmental allergies: No The ROS is otherwise negative. The patient's pmh, medications, allergies, and past visits are reviewed. PHYSICAL EXAM: BP 108/68 Pulse 78 Temp 36.5 ?C (97.7 ?F) Resp 16 Wt 80.7 kg (178 lb) SpO2 99% General appearance: alert, cooperative, pleasant, in no acute distress Head: Normocephalic Eyes: EOM's intact, conjunctiva pink and moist, no icterus, sclera white, non-injected Ears: Right ear: External ear/canal- Normal, TM - clear with good landmarks. Left ear: External ear/canal- Normal, TM - clear with good landmarks Oropharynx:moist without lesions, No erythema, exudates or tonsillar hypertrophy. Heart: Negative. RRR without obvious murmur, gallop, or rubs. No ectopy. Lungs: clear to auscultation, without rales or wheeze, good air exchange No past medical history on file. No past surgical history on file. ALLERGIES Patient has no known allergies. MEDICATIONS predniSONE (DELTASONE) 20 mg tablet Take 1 tablet by mouth once daily for 5 days. ondansetron orally disintegrating (ZOFRAN ODT) 4 mg disintegrating tablet Take 1 tablet by mouth every 8 hours as needed for nausea/vomiting for up to 7 days. loratadine (CLARITIN) 10 mg tablet Take 1 tablet by mouth once daily. No family history on file. ASSESSMENT/PLAN: 1. Left ear pain - ICD9: 388.70, ICD10: H92.02 (primary diagnosis) 2. Sinus congestion - ICD9: 478.19, ICD10: R09.81 - PREDNISONE 20 MG TABLET - LORATADINE 10 MG TABLET 3. Nausea - ICD9: 787.02, ICD10: R11.0 - ONDANSETRON 4 MG DISINTEGRATING TABLET Prescription instructions reviewed with patient as applicable. Potential red flag symptoms discussed with the patient. Reviewed appropriate action plan to take if red flag symptoms occur. Patient agreeable to treatment plan. Nedra Patrick APRN.[employer] Referring Provider: SELF [200] Allergies As of Date: 03/06/2023 (No Known Allergies) Date Reviewed: 03/06/2023 Reviewed by: Lauren Hatch - Fully Assessed Reason for Visit: Ear Problem [38] Cmt: left ear pressure and dizziness with vomiting and nasal drainage x 2 days Primary Visit Diagnosis:Left ear pain [H92.02] Other Visit Diagnoses:Sinus congestion [R09.81] Nausea [R11.0] Order(s):predniSONE (DELTASONE) 20 mg tabletTake 1 tablet by mouth once daily for 5 days.Disp: 5 tabletRfl: 0 ondansetron orally disintegrating (ZOFRAN ODT) 4 mg disintegrating tabletTake 1 tablet by mouth every 8 hours as needed for nausea/vomiting for up to 7 days.Disp: 21 tabletRfl: 0 loratadine (CLARITIN) 10 mg tabletTake 1 tablet by mouth once daily.Disp: 30 tabletRfl: 11 Prescriptions as of 03/06/2023 - predniSONE (DELTASONE) 20 mg tablet Take 1 tablet by mouth once daily for 5 days. - ondansetron orally disintegrating (ZOFRAN ODT) 4 mg disintegrating tablet Take 1 tablet by mouth every 8 hours as needed for nausea/vomiting for up to 7 days. - loratadine (CLARITIN) 10 mg tablet Take 1 tablet by mouth once daily. Problem List As Of Date: 03/06/2023 (None) Prescriptions ordered this encounter Disp Refills Start End PREDNISONE 20 MG TABLET 5 ta* 0 03/06/2023 03/11/2023 Route: ORAL Sig: Take 1 tablet by mouth once daily for 5 days. ONDANSETRON 4 MG DISINTEGRATING TABL* 21 t* 0 03/06/2023 03/13/2023 Route: ORAL Sig: Take 1 tablet by mouth every 8 hours as needed for nausea/vomiting for up to 7 days. LORATADINE 10 MG TABLET 30 t* 11 03/06/2023 Route: ORAL Sig: Take 1 tablet by mouth once daily. Encounter Status:Closed by NEDRA PATRICK on 03/06/23 [facility] PELVICon 09-07-2017 [place] [address] Patient: PARVIN MONTEJO Phone#: : 1970 Age: 47 Gender: F Pt. Type: Out Account: [id number] Location: Ordering: [facility] Exam Date: 09/07/2017/13:05 Family Phys: Charge Code: [id number] Physician: [place] Order #: [id number] Dose#: PROCEDURE: PELVIC ULTRASOUND, TRANSABDOMINAL ENDOVAGINAL COMPARISON: None. INDICATIONS: Heavy Periods, Right Lower Quadrant Fullness TECHNIQUE: Pelvic ultrasound using transabdominal and endovaginal technique. FINDINGS: UTERUS: The uterus is enlarged and heterogeneous in appearance with at least 2 large bulky fibroids. Additional smaller fibroids male see present. The uterus measures 12.2 x 9.6 x 7.1 cm. The endometrial stripe measures 1.5 cm. Adjacent to the lower uterine segment there is a large hypoechoic lesion, most consistent with a subserosal fibroid measuring 7.8 x 6.2 x 4.9 cm. Adjacent to the right uterine fundus there is a hypoechoic lesion, most consistent with a submucosal fibroid measuring 3.5 x 3.0 cm. The fibroid deforms the endometrial canal. ADNEXAE: Normal bilateral appearance with no significant masses. Right ovary is 2.7 x 1.5 x 2.8 cm. Left ovary is 3.3 x 2.1 x 3.2 cm. Follicle is seen in the left ovary. CUL-DE-SAC: Normal. No fluid or mass. OTHER: Negative. CONCLUSION: 1. Bulky fibroids distorting the uterus and endometrial canal. Dictated by: Kimberly Sim MD on 09/07/2017 at 14:06 Approved by: Kimberly Sim MD on 09/07/2017 at 14:06 Normal [facility] Encounters Encounter Date Encounter Type Care Provider Facility Start: 02-05-2024 End: 02-05-2024 ambulatory No Primary Care Physician Facility[place] Start: 01-19-2024 Encounter for other preprocedural examination Melody Adan [facility] Start: 01-08-2024 End: 01-08-2024 ambulatory No Primary Care Physician Facility:[facility] Start: 12-26-2023 ambulatory No Primary Car e Physician Facility:[facility] Start: 12-26-2023 End: 12-26-2023 ambulatory No Primary Care Physician Facility:[facility] Start: 12-20-2023 End: 12-20-2023 ambulatory No Primary Care Physician Facility:[facility] Start: 12-18-2023 End: 12-18-2023 ambulatory No Primary Care Physician Facility:[facility] Start: 11-08-2023 End: 11-08-2023 ambulatory No Primary Care Physician Facility:[facility] Start: 11-08-2023 End: 11-08-2023 ambulatory No Primary Care Physician Facility:[facility] Start: 10-16-2023 End: 10-16-2023 ambulatory No Primary Care Physician Facility:[facility] Start: 10-02-2023 End: 10-02-2023 ambulatory Sera Bowser Facility:[facility] Start: 10-02-2023 End: 10-02-2023 ambulatory No Primary Care Physician Facility:[facility] Start: 03-06-2023 End: 03-06-2023 ambulatory Facility:[facility] Start: 09-07-2017 End: 09-07-2017 Ambulatory LAUREN Corbin ANGLIN [facility] Payers Date Payer Category Payer Self-pay 2023 Unknown [id number] Unknown Unknown [id number] Unknown [id number] 2.16.8 [id number] Unknown [id number] 2.16.8 [id number] Unknown [id number] 2.16.8 [id number] Unknown [id number] 2.16.8 [id number] Unknown [id number] 2.16.8 [id number] Unknown [id number] 2.16.8 [id number] Unknown [id number] 2.16.8 [id number] Unknown [id number] 2.16.8 [id number] Unknown [id number] 2.16.8 [id number] Unknown [id number] 2.16.8 [id number] Clinical Note 12-26-2023 Note Date & Type Note Facility 12-26-2023 [facility] Medical Records Department [address] [place] [id number] History Physical Exam 12/26/23 0716 MR#: [id number] Acct: [id number] Name: PARVIN MONTEJO Rep #: [id number] : 1970 53 From: Melody Adan DO PCP: Care Physician,No Primary Status:[facility] Location: [place] [address] History and Physical Date of Admission: 12/26/23 Intake Vital Signs 11/08/2415:11 12/19/2412:03 12/19/2412:05 Height 5 ft 4 in 5 ft 4 in 5 ft 4 in Weight: 194 lb BMI 33.3 BP 114/76 Intake Visit Reasons: robotic total hyst BS 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 Is patient in pain?: No Allergies No Known Allergies Allergy (Verified 12/20/23 13:03) Medications ???Medication ???Instructions ???Recorded ???Confirmed ???Type vitamin B complex (Complex B-100 1 tab PO DAILY 12/13/23 12/20/23 History tablet,extended release) Post menopausal: No Patient : No : No PFSH Medical History Preop testing PONV (postoperative nausea and vomiting) Wears glasses Restless legs Migraine headache Non-smoker History of edema Uterine fibroid Endometriosis Surgical History History of wisdom tooth extraction H/O laparoscopy Family History Father Colon cancerGrandmother Uterine cancer, Onset Age: 78Other Heart disease Social History adopted: No number of children: 1 current occupational status: employed current occupation: House cleaning Smoking Status: Never smoker alcohol intake: never substance use type: does not use additional social history: Spouse - Maria T (drafting in a [employer]) HPI robotic total hyst BS Details: PARVIN MONTEJO is a 53 year old (vaginal) who presents for preop hysterectomy. She is scheduled for a robotic hysterectomy. She has a history of heavy periods and now has low back pain and sever pressure and pain in her abdominal area. pain radiates to her knees at time. EMB was benign. Ultrasound shows the following: The uterus is anteverted and is in a midline position. The uterus measures 11.7 cm x 10.1 cm x 7.1 cm. There is a Nabothian cyst of the cervix. The endometrium is thickened and measures 15 mm in thickness, and is hyperechoic. There is no demonstrated endometrial mass. Multiple uterine fibroids are seen. The largest is a pedunculated fibroid measuring 7.3 cm x 6.1 cm by 4.4 cm. I.U.D. - The patient does not have an I.U.D. The right ovary is visualized. The right ovary measures 2.6 cm x 1.6 cm x 1.4 cm. There is no right ovarian cyst or ovarian mass. There is no visualized right adnexal mass or complex lesion. There is normal arterial and normal venous vascularity. The left ovary is visualized. The left ovary measures 4.2 cm x 2.1 cm x 1.3 cm. There is no left ovarian cyst or ovarian mass. There is no visualized left adnexal mass or complex lesion. There is normal arterial and normal venous vascularity. There is no fluid in the cul-de-sac. The pre void volume of the bladder was 206 ml. US/Pelvic w/ Transvaginal IMPRESSION: Multiple uterine fibroids. Thickened endometrium. endometrial pathology showed proliferative endometrium on EMB. History 1 Elective abortions Hx Para 1 Spontaneous abortions Hx # Term Pregnancies Ectopic pregnancies Hx # Pregnancies Multiple births # of living children 1 Past Pregnancies Del. Date Name GA/Weeks Outcome Route Bth Weight Gen Labor Lgth Anesthesia Del Locatn Provider FOB Unknown Evette 1994 ROS Const ROS Unobtainable: All systems reviewed are unremarkable except as noted in H Resp Resp: Reports system reviewed and no additional complaints, except as documented; Denies cough GI GI: Reports as per HPI Psych Psych: Reports system reviewed and no additional complaints, except as documented Exam Const General: cooperative, healthy appearing, comfortable and no acute distress Resp Effort Inspection: normal respiratory effort Skin General: no rashes or lesions noted Psych Appearance: grossly normal Speech and Movement: speech and movement normal Coding Level of Care Code Off vis,est,level 4 Diagnoses Uterine fibroid D25.9 Endometriosis N80.9 Assessment and Plan Assessment and Plan (1) Uterine fibroid: Status: Acute Comment: discussed options, workup ordered. needs cbc US EMB and discussed Myfembree vs Hysterectomy. 7 cm fibroid, pap and EMB done, recommend robotic TLHBS. (2) Endometriosis: Status: Acute Plan: After discussing the patient's diagnosis and treatment plan options (more content not included)... [facility] Progress note 03-06-2023 Note Date & Type Note Facility 03-06-2023 Note HNO ID: [id number] Author: Nedra Patrick APRN.FLOOR [employer] Service: ? Author Type: Nurse Practitioner Type: Progress Notes Filed: 03/06/2023 9:47 AM Note Text: CC: Patient presents with: Ear Problem: left ear pressure and dizziness with vomiting and nasal drainage x 2 days HPI: Parvin Montejo is a 52 year old female who presents to the office with complaint of head congestion, sinus symptoms, and ear symptoms for a few days. Symptoms are staying the same. Associated symptoms includes nasal congestion and facial pain/pressure. Denies fever, wheezing, dyspnea, and chest pain or pleuritic pain. Treatments tried include nothing so far. with no relief of symptoms. Sick contacts: unknown. History of asthma, frequent episodes of bronchitis, chronic bronchitis, bronchiectasis or COPD: No Smoker: No Seasonal/environmental allergies: No The ROS is otherwise negative. The patient's pmh, medications, allergies, and past visits are reviewed. PHYSICAL EXAM: BP 108/68 Pulse 78 Temp 36.5 ?C (97.7 ?F) Resp 16 Wt 80.7 kg (178 lb) SpO2 99% General appearance: alert, cooperative, pleasant, in no acute distress Head: Normocephalic Eyes: EOM's intact, conjunctiva pink and moist, no icterus, sclera white, non-injected Ears: Right ear: External ear/canal- Normal, TM - clear with good landmarks. Left ear: External ear/canal- Normal, TM - clear with good landmarks Oropharynx:moist without lesions, No erythema, exudates or tonsillar hypertrophy. Heart: Negative. RRR without obvious murmur, gallop, or rubs. No ectopy. Lungs: clear to auscultation, without rales or wheeze, good air exchange No past medical history on file. No past surgical history on file. ALLERGIES Patient has no known allergies. MEDICATIONS predniSONE (DELTASONE) 20 mg tablet Take 1 tablet by mouth once daily for 5 days. ondansetron orally disintegrating (ZOFRAN ODT) 4 mg disintegrating tablet Take 1 tablet by mouth every 8 hours as needed for nausea/vomiting for up to 7 days. loratadine (CLARITIN) 10 mg tablet Take 1 tablet by mouth once daily. No family history on file. ASSESSMENT/PLAN: 1. Left ear pain - ICD9: 388.70, ICD10: H92.02 (primary diagnosis) 2. Sinus congestion - ICD9: 478.19, ICD10: R09.81 - PREDNISONE 20 MG TABLET - LORATADINE 10 MG TABLET 3. Nausea - ICD9: 787.02, ICD10: R11.0 - ONDANSETRON 4 MG DISINTEGRATING TABLET Prescription instructions reviewed with patient as applicable. Potential red flag symptoms discussed with the patient. Reviewed appropriate action plan to take if red flag symptoms occur. Patient agreeable to treatment plan. Nedra Patrick APRN.[facility] Summary Purpose Family History No Family History Records FoundNo Family History Records FoundNo Family History Records Found Advance Directives No Advanced Directives Records FoundNo Advanced Directives Records FoundNo Advanced Directives Records Found Additional Source Comments INFORMATION SOURCE (unrecogn ized section and content) DATE CREATED AUTHOR 10/18/[address] [facility] DATE CREATED AUTHOR AUTHOR'S ORGANIZ ATION 03/06/2023 [facility] DATE CREATED AUTHOR AUTHOR'S ORGANIZ ATION 02/06/2024 [facility] FOR RECORDS PERTAINING TO PATIENTS WHO ARE OR HAVE BEEN ENROLLED IN A CHEMICAL DEPENDENCY/SUBSTANCEABUSE PROGRAM, SOME INFORMATION MAY BE OMITTED. This clinical summary was aggregated from multiple sources. Caution should be exercised in using it in the provision of clinical care. This summary normalizes information from multiple sources, and as a consequence, information in this document may materially change the coding, format and clinical context of patient data. In addition, data may be omitted in some cases. CLINICAL DECISIONS SHOULD BE BASED ON THE PRIMARY CLINICAL RECORDS. [employer] provides no warranty or guarantee of the accuracy or completeness of information in this document.
--- NOTE | 2025-03-22 12:16 | CT_ITS ---
PROCEDURE: BRAIN/HEAD WITHOUT CONTRAST 03/22/2025 REASON FOR EXAM: HEADACHE TECHNIQUE: Procedure Code: CTBR Modality: CT Procedure: BRAIN/HEAD WITHOUT CONTRAST Coronal and Sagittal reconstruction series were provided. One or more dose reduction techniques were used (e.g., Automated exposure control, adjustment of the mA and/or kV according to patient size, use of iterative reconstruction technique. RADIATION DOSE SUMMARY: CTDlvol: 44.99 mGy DLP: 748.30 mGycm COMPARISON: None. FINDINGS: BRAIN: No acute intraparenchymal hemorrhage. Prominent vessels in the right frontal lobe white matter extending to the superior sagittal sinus via transcortical vessels. No CT evidence for acute territorial infarct. No midline shift or extra-axial collection. VENTRICLES: No hydrocephalus. ORBITS: The orbits are unremarkable. SINUSES AND MASTOIDS: The paranasal sinuses and mastoid air cells are clear. SOFT TISSUES: No acute abnormality seen. BONES: No acute osseous abnormality seen. 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 Reading Location: [id number]
--- NOTE | 2025-03-22 12:16 | CT_ITS ---
PROCEDURE: CTA HEAD AND NECK W/ CONTRAST 03/22/2025 REASON FOR EXAM: HEADACHE, RECENT MANIPULATION BY CHIROPRACTOR TECHNIQUE: Procedure Code: CTCTA.HDNCK Modality: CT Procedure: CTA HEAD AND NECK W/ CONTRAST Axial CTA images of the head and neck performed with intravenous contrast. MIP reconstructed images were created and reviewed. Note: Per PQRS, the description of internal carotid artery percent stenosis, including 0 percent or normal exam, is based on [place] Symptomatic Carotid Endarterectomy Trial (NASCET) criteria. CONTRAST: Isovue 370 VOLUME: 100 mL One or more dose reduction techniques were used (e.g., Automated exposure control, adjustment of the mA and/or kV according to patient size, use of iterative reconstruction technique). RADIATION DOSE SUMMARY: CTDlvol: 19.87 mGy DLP: 784.03 mGycm COMPARISON: None. FINDINGS: CTA HEAD: INTERNAL CAROTID ARTERIES (ICA) No significant stenosis. No occlusion. No aneurysm. ANTERIOR CEREBRAL ARTERIES (JOSSUE) No significant stenosis. No occlusion. No aneurysm. MIDDLE CEREBRAL ARTERIES (MCA) No significant stenosis. No occlusion. No aneurysm. POSTERIOR CEREBRAL ARTERIES (RECEIVABLE MANAGER) No significant stenosis. No occlusion. No aneurysm. BASILAR ARTERY No significant stenosis. No occlusion. No aneurysm. VERTEBRAL ARTERIES No significant stenosis. No dissection or occlusion. VENOUS STRUCTURES Patent. BONES No acute osseous abnormality. OTHER Right frontal region shows a cluster of enlarged medullary veins arising near the right lateral ventricular margin and converging into prominent transcortical draining veins that empty into the anterior superior sagittal sinus. Some of the smaller medullary veins have an umbrella-like pattern. No arterial feeder or nidus is seen. CTA NECK: COMMON CAROTID ARTERIES (CCA) No significant stenosis. No dissection or occlusion. INTERNAL CAROTID ARTERIES No stenosis by NASCET criteria. No dissection or occlusion. VERTEBRAL ARTERIES No significant stenosis. No dissection or occlusion. SOFT TISSUES No acute finding. No masses or lymphadenopathy. BONES No acute osseous abnormality. CT/CTA Head AND Neck W/ Contrast IMPRESSION: 1. No hemodynamically significant stenosis within the head or neck. No evidenc e of intracranial aneurysm. 2. 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 Reading Location: [id number]
[2025-03-22] MEDS: 0.9% Normal Saline (1000mL) 1,000 ML 1000 ML IV (12:22)
[2025-03-22] MEDS: DiphenhydrAMINE 50 MG/ML Syringe 25 MG IV (12:24)
--- NOTE | 2025-03-22 12:30 | EX.ED.DYSGE1 ---
HPI History of Present Illness Chief Complaint: Headache Narrative Narrative: Chief complaint and HPI: 54-year-old female with past medical history of migraine headaches presents for evaluation of headache. Patient states for the past several weeks she has had a pinched nerve in her left neck. States that she has been following up with a chiropractor with manipulation. Has not followed up with an orthopedic physician. Patient states today shortly after waking up she developed a headache that has been gradual in onset. Associated symptom is nausea, vomiting, light and sound sensitivity. She denies any fever, chills, URI symptoms, chest pain, shortness of breath, weakness, numbness or tingling. Denies any trauma. Took ibuprofen earlier for the pain. Review of systems: See HPI Medications: As listed on the chart Allergies: As listed on the chart PFSH: Per chart Vital signs: As listed on the chart. Reviewed. Physical exam: Gen: A&O x3, NAD Head: Normocephalic, atraumatic Eyes: No sclera icterus, conjunctiva clear, PERRL, EOMI ENT: TMs clear BL, moist mucous membranes, posterior oropharynx unremarkable, uvula midline, tonsils not enlarged, no tonsillar exudates, no sinus tenderness, no facial asymmetry Neck: Trachea midline, Full ROM, No meningismus no midline spinal tenderness, no bony step-off, mild tenderness to palpation of the left cervical paraspinal musculature down into the trapezius muscle CV: RRR, no murmurs, radial pulse +2 bilaterally Resp: Lungs CTA BL, no w/r/c Musc: Full ROM, no deformity, strength +5/5 in all extremities Skin: Warm, dry Neuro: Alert, oriented, grossly intact, sensation intact Psych: Cooperative, appropriate mood and affect [facility] Medical History (Updated 03/22/25 @ 15:[address] Ayan Braxton, DO) Preop testing PONV (postoperative nausea and vomiting) Wears glasses Restless legs Migraine headache Non-smoker History of edema Uterine fibroid Endometriosis Home Medications ?Medication ?Instructions ?Recorded ?Last Taken ?Type vitamin B complex (Complex B-100 1 tab PO DAILY 12/13/23 12/25/23 History tablet,extended release) Boswellia fracisco extract 307 mg mg PO 03/22/25 Unknown History tablet multivitamin (Daily Multi-Vitamin 1 tab PO DAILY 03/22/25 Unknown History tablet) Allergy/AdvReac Type Severity Reaction Status Date / Time No Known Allergies Allergy Verified 03/22/25 10:56 Family History Father Colon cancer Grandmother Uterine cancer, Onset Age: 78 Other Heart disease Surgical History (Updated 02/05/24 @ 10:04 by Evette Keyes) S/P total hysterectomy (~12/26/23) History of wisdom tooth extraction H/O laparoscopy Social History adopted: No number of children: 1 current occupational status: employed current occupation: House cleaning Smoking Status: Never smoker alcohol intake: never substance use type: does not use additional social history: Spouse - Maria T (drafting in a [employer]) EXAM Physical Exam Const Vital Signs: 03/22/25 10:55 03/22/25 12:48 03/22/25 14:00 Temperature 96.9 F L 98.4 F 97.8 F Temperature Source Temporal Oral Oral Pulse Rate 69 65 75 Respiratory Rate 14 12 14 Blood Pressure 171/101 H 149/89 H 128/85 H Blood Pressure Mean 124 109 99 Pulse Ox 98 100 99 Oxygen Delivery Method Room Air Room Air Room Air MDM MDM MDM Narrative Medical decision making narrative: 54-year-old female with past medical history of migraine headaches presents for evaluation of headache. Patient states for the past several weeks she has had a pinched nerve in her left neck. States that she has been following up with a chiropractor with manipulation. Has not followed up with an orthopedic physician. Patient states today shortly after waking up she developed a headache that has been gradual in onset. Associated symptom is nausea, vomiting, light and sound sensitivity. Headache was not sudden in onset. Not time with exertional activity or trauma. Differential diagnosis includes but is not limited to migraine headache, tension headache, cervical radiculopathy, suspect less likely intracranial abnormality, intracranial bleed, arterial dissection however patient has been exposed to manipulation from a chiropractor. Basic labs ordered with CT head and CTA head and neck. Migraine cocktail given for symptoms. CBC without leukocytosis or anemia. BMP unremarkable. CT of the head shows vascular malformation in the right frontal lobe, likely a developmental venous anomaly. CTA head and neck without any significant stenosis, aneurysm, dissection. On reevaluation, patient's headache has improved. Almost gone. She still endorsing the same neck pain that she has had for several weeks. She was updated of all the results. She states this is the first time anybody has imaged her head. This may be the cause of her intermittent migraines. Follow-up with neurosurgery and primary care physician. Follow-up with orthopedic physician for neck pain. Return back to ED symptoms change or worsen. She confirmed understand the plan. Patient will discharge home. Impression: 1. Headache 2. Left neck pain 3. 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 Lab Data Labs: Laboratory Results - last 24 hr 03/22/25 12:24 WBC 9.0 RBC 4.45 Hgb 13.4 Hct 40.2 MCV 90.3 MCH 30.1 MCHC 33.3 RDW Std Deviation 41.1 RDW Coeff of Colt 12.5 Plt Count 266 MPV 9.9 Immature Gran % (Auto) 0.400 Neut % (Auto) 83.5 H Lymph % (Auto) 13.3 L [place] % (Auto) 2.4 Eos % (Auto) 0.1 Baso % (Auto) 0.3 Absolute Neuts (auto) 7.5 Absolute Lymphs (auto) 1.20 Nucleated RBC % 0 Sodium 137 Potassium 3.7 Chloride 103 Carbon Dioxide 25.4 Anion Gap 9 BUN 10 Creatinine 0.55 L Estim Creat Clear Calc 128.26 Est GFR (MDRD) Non-Af 110 BUN/Creatinine Ratio 18.8 Glucose 115 H Calcium 9.4 Radiography Diagnostic Testing: Clinical Impression(s) from Imaging Studies Brain CT 03/22/25 12:16 IMPRESSION: 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 Reading Location: [facility] Head/Neck CTA 03/22/25 12:16 IMPRESSION: 1. No hemodynamically significant stenosis within the head or neck. No evidence of intracranial aneurysm. 2. 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 Reading Location: [id number] Discharge Plan Triage Chief Complaint: Headache ED Provider: Ayan Braxton Dx/Rx/DC Orders Clinical Impression: Headache, Neck pain Instructions: ED Headache Unspecified, ED Neck Pain Prescriptions: No Action Complex B-100 Tablet Extended Release 1 tab PO DAILY multivitamin [Daily Multi-Vitamin] Tablet 1 tab PO DAILY Boswellia fracisco extract 307 mg tablet PO Primary Care Provider: Care Physician,No Primary Referrals: Dimas Sykes MD [Med Staff - Active Staff, Orthopedics] - 3-5 Days Patric Boudreaux MD [Med Staff - Active Staff, Family Practice] - 3-5 Days Vernon Jackson MD [Non-Staff, Neurosurgery] - 3-5 Days Activity Restrictions/Additional Instructions: Follow-up with her primary care physician. She does not have a primary care physician follow with the one listed above. Recommend refraining from seeing a chiropractor until evaluated by an orthopedic or neurosurgeon for your neck pain. CT of the brain shows vascular malformation in the right frontal lobe. Likely a developmental venous anomaly. Follow-up with neurosurgery. Return back to ED symptoms change or worsen. Tylenol and Motrin as needed for pain. Gentle stretching. Print Language: Sudanese Disposition Disposition: Home, Self Care
[2025-03-22 12:32] LABS: Hematocrit 40.2 % (37-47); Hemoglobin 13.4 g/dL (12.0-15.0); Immature Granulocytes Count 0.040 X10^3/uL (0.0-0.0); Mean Corp Hgb Conc 33.3 g/dL (32-36); Mean Corpuscular Volume 90.3 fL (81-99); Mean Platelet Vol. 9.9 fl (6.2-12.0); NRBC Flagged by Analyzer 0 % (0-5); Platelet Count 266 K/mm3 (150-450); RBC Distribution Width CV 12.5 % (11.6-14.6); RBC Distribution Width SD 41.1 fl (35.1-43.9); Red Blood Count 4.45 M/mm3 (4.2-5.4); White Blood Count 9.0 K/mm3 (4.4-11.0)
[2025-03-22 12:48] VITALS: BP 149/89; PULSE 65; RESP 12; TEMP 36.9; O2SAT 100
--- NOTE | 2025-03-22 13:02 | CM.ED ---
Social work Reason for referral: no PCP Referral source: case find SW entered patient's room, introducing self and role at [facility]. Patient welcomed SW visit and patient's , Maria T, at bedside. Patient confirmed lacking PCP and accepted information regarding [facility] doctors accepting new patients and Luli Mae. Patient denied further needs at this time. Glory Khan, KEG VARNISHER, [employer] SERVICES MANAGER
[2025-03-22 13:17] LABS: Anion Gap 9 (5-15); BUN 10 mg/dL (4-19); BUN/Creat Ratio 18.8 RATIO (10-20); Calcium,Total 9.4 mg/dL (7.6-11.0); Carbon Dioxide 25.4 mmol/L (21.0-32.0); Chloride 103 mmol/L (98-108); Estimated Creatinine Clearance 128.26 ml/min (50-250); Glucose 115 mg/dL (70-99); Potassium 3.7 mmol/L (3.3-5.1)
[2025-03-22 14:00] VITALS: BP 128/85; PULSE 75; RESP 14; TEMP 36.6; O2SAT 99
[2025-03-22 15:17] VITALS: BP 124/88; PULSE 68; RESP 14; TEMP 36.6; O2SAT 98
== END 2025-03-22 15:27 | disposition home or self-care (01) ==
PROVIDERS: Emergency Provider Surgery; Visit Provider Surgery
DX: R51.9 Headache, unspecified (principal); R11.2 Nausea with vomiting, unspecified; M54.2 Cervicalgia; Q28.3 Other malformations of cerebral vessels
CPT/HCPCS: 70450; 70496; 70498; 80048; 85025; 96361; 96374; 96375; 99284; Q9967; A4216